=== PATIENT | male | born 1980 | race Caucasian/White ===

== ENCOUNTER → 2017-12-21 14:27 | Outpatient (CLI) | payer MEDICAID, SELFPAY ==
[2017-08-08 18:09] VITALS: BMI 38.0
[2017-08-08 19:13] VITALS: BP 149/95
[2017-12-21 15:18] LABS: Absolute Lymphocyte Count 2.15 X10^3/ul (0.83-4.51); Absolute Neutrophil Count 6.8 X10^3/uL (2.0-7.7); Basophil# 0.07 X10^3/uL; Basophil% 0.7 % (0-1); Eosinophils% 2.9 % (0-5); Hematocrit 45.1 % (40-54); Hemoglobin 15.4 g/dl (13.0-16.5); Lymphocyte # 2.15 X10^3/ul (4.0); Mean Corp Hgb Conc 34.1 g/gl (32-36); Mean Corpuscular Volume 84.9 fL (80-94); Mean Platelet Vol. 10.5 fl (6.2-12.0); Monocyte# 0.83 X10^3/uL; Monocyte% 8.1 % (0-10); Neutrophil # 6.81 X10^3/uL (2.7-7.7); Neutrophil % 66.4 % (47-70); POSITIVE COUNT NO; POSITIVE DIFFERENTIAL NO; POSITIVE MORPHOLOGY NO; Platelet Count 323 K/mm3 (150-450); RBC Distribution Width CV 13.8 % (11.6-14.6); RBC Distribution Width SD 42.7 fl (35.1-43.9); Red Blood Count 5.31 M/mm3 (4.6-6.2); White Blood Count 10.3 K/mm3 (4.4-11.0)
[2017-12-21 15:57] LABS: AST(SGOT) 25 U/L (15-37); Alanine Aminotransfer ALT/SGPT 39 U/L (16-61); Albumin, Serum 3.7 g/dL (3.2-5.0); Alkaline Phosphatase 110 U/L (45-117); Anion Gap 8 (5-15); BUN 11 mg/dL (7-18); BUN/Creat Ratio 8.3 RATIO (10-20); Calcium,Total 9.2 mg/dL (8.5-10.1); Chloride 107 mmol/L (98-107); Creatinine, Serum 1.32 mg/dL (0.70-1.30); EST Glomerular Filtration Rate 64 mL/min (>60); Est Glom Filt Rate - Afr Amer 78 mL/min (>60); Globulin 3.7 g/dL (2.2-4.2); Glucose 113 mg/dL (74-106); Potassium 3.8 mmol/L (3.5-5.1); Protein, Total 7.4 g/dL (6.4-8.2); Sodium Level 141 mmol/L (136-145)
== END ==
PROVIDERS: Family Provider Family Medicine Geriatric Medicine; PCP Family Medicine Geriatric Medicine; Visit Provider Family Medicine Geriatric Medicine
DX: R53.83 Other fatigue (principal)
CPT/HCPCS: 80053; 85025

== ENCOUNTER 2017-12-22 22:32 | Emergency (ER) | payer MEDICAID, SELFPAY ==
[2017-12-22 22:33] VITALS: BP 160/114; PULSE 91; RESP 14; TEMP 36.8; O2SAT 97; BMI 36.7
--- NOTE | 2017-12-22 23:32 | ED.VISSUMM ---
- ER Visit Summary Date of Service: 12/22/17 Chief Complaint: Bleeding from left ear History of Present Illness: The patient is a [address] Cota. He reports that he was cleaning out his left ear with a Q-tip when he began having some bleeding. He reports he has an aching pain instead of 10 at worst and 5 out of 10 currently. Physical Examination: Vitals: Stable. Afebrile. General: Well-nourished and well-developed. Head: Normocephalic atraumatic. HEENT: Abrasion to the outer portion of the left external auditory canal. There is no active bleeding. His TM is normal. Neck: Supple, no lymphadenopathy. No JVD. Nontender. Cardiovascular: Regular rate and rhythm. No murmurs. Respiratory: No respiratory distress. Clear to auscultation bilaterally. Abdominal: Soft, nontender, nondistended, normal bowel sounds. No guarding, rebound, or peritoneal signs. Back: Nontender. Extremities: Nontender, no edema. Skin: Normal color, no rash. Neurologic: Alert and oriented ?3. Cranial nerves II through XII are intact. Normal strength and sensation. Psych: Normal affect. Test Results: Patient was treated with Cortisporin otic to prevent otitis externa. He was given naproxen for pain. Emergency Department Course and Treatment: He will be discharged with Cortisporin otic and naproxen. Instructed to follow-up with Dr. Del Rio in 1 week if not improving. Disposition: To home in improved and stable condition. Impression: 1. Abrasion left external auditory canal. This note was generated with Not[employer] dictation software. It may contain incorrect words, spelling, and punctuation that were not noted in review of the chart prior to signing ED Disposition - Plan for ED Patient: Disposition: Home or Assisted Living Chief Complaint: Ear Problem Instructions: ED Otitis Externa Prescriptions: Naproxen [Naprosyn] 500 mg PO BID PRN #20 tablet Referrals: Alex Cota Chi, MD [Primary Care Provider] - 1 Week if not improving
[2017-12-23] MEDS: Neomycin Sulfate/Polymyxin/Hc Susp 10 ML Bottle 1 DRP OTIC (00:03)
[2017-12-23] MEDS: Naproxen 500 MG Tablet PO (00:03)
[2017-12-23 00:10] VITALS: RESP 16
== END 2017-12-23 00:10 | disposition home or self-care (01) ==
PROVIDERS: Emergency Provider Emergency Medicine; Family Provider Family Medicine Geriatric Medicine; PCP Family Medicine Geriatric Medicine
DX: S00.412A Abrasion of left ear, initial encounter (principal); X58.XXXA Exposure to other specified factors, initial encounter; Y93.E8 Activity, other personal hygiene; Y92.9 Unspecified place or not applicable; Y99.9 Unspecified external cause status
CPT/HCPCS: 99283

== ENCOUNTER 2018-01-14 13:37 | Emergency (ER) | payer MEDICAID, SELFPAY ==
[2018-01-14 13:39] VITALS: BP 155/114; PULSE 88; RESP 18; TEMP 37.3; O2SAT 96; BMI 36.6
[2018-01-14] MEDS: 0.9% Normal Saline 1,000 ML 1000 ML IV (14:18)
[2018-01-14] MEDS: Ondansetron 4 MG/2 ML Vial IV (14:18)
[2018-01-14] MEDS: Dicyclomine 10 MG Capsule 20 MG PO (14:18)
[2018-01-14 14:34] LABS: Absolute Neutrophil Count 4.1 X10^3/uL (2.0-7.7); Basophil# 0.15 X10^3/uL; Basophil% 1.9 % (0-1); Eosinophil# 0.12 X10^3/uL; Eosinophils% 1.5 % (0-5); Hematocrit 44.6 % (40-54); Hemoglobin 15.7 g/dl (13.0-16.5); Lymphocyte % 31.6 % (19-41); Mean Corp Hgb Conc 35.2 g/gl (32-36); Mean Corpuscular Hgb 29.3 pg (27.0-32.0); Mean Corpuscular Volume 83.2 fL (80-94); Monocyte# 1.05 X10^3/uL; Monocyte% 13.3 % (0-10); Neutrophil # 4.05 X10^3/uL (2.7-7.7); Neutrophil % 51.3 % (47-70); POSITIVE COUNT NO; POSITIVE DIFFERENTIAL NO; POSITIVE MORPHOLOGY NO; Platelet Count 171 K/mm3 (150-450); RBC Distribution Width CV 13.7 % (11.6-14.6); RBC Distribution Width SD 41.8 fl (35.1-43.9); Red Blood Count 5.36 M/mm3 (4.6-6.2); White Blood Count 7.9 K/mm3 (4.4-11.0)
[2018-01-14 14:41] LABS: ALB/GLOB Ratio 0.9 RATIO (0.9-2.4); AST(SGOT) 37 U/L (15-37); Alanine Aminotransfer ALT/SGPT 60 U/L (16-61); Albumin, Serum 3.7 g/dL (3.2-5.0); Alkaline Phosphatase 109 U/L (45-117); Anion Gap 9 (5-15); BUN 7 mg/dL (7-18); BUN/Creat Ratio 4.8 RATIO (10-20); Calcium,Total 10.9 mg/dL (8.5-10.1); Chloride 107 mmol/L (98-107); Creatinine, Serum 1.45 mg/dL (0.70-1.30); EST Glomerular Filtration Rate 57 mL/min (>60); Est Glom Filt Rate - Afr Amer 70 mL/min (>60); Estimated Creatinine Clearance 79.52 ml/min; Globulin 3.9 g/dL (2.2-4.2); Glucose 109 mg/dL (74-106); Lipase 150 U/L (73-393); Potassium 3.4 mmol/L (3.5-5.1); Protein, Total 7.6 g/dL (6.4-8.2); Sodium Level 142 mmol/L (136-145)
--- NOTE | 2018-01-14 15:50 | ED.VISSUMM ---
- ER Visit Summary Date of Service: 01/14/18 Chief Complaint: [Vomiting, diarrhea, abdominal pain] History of Present Illness: The patient is a 37 M [presents to the emergency department with 3-4 day history of vomiting followed by diarrhea and abdominal pain. Patient currently rates his pain a 10 out of 10. Patient has not thrown up since yesterday. Patient has had one watery stool today. The diarrhea was more severe the preceding 2 days. Patient denies any blood in his stool. Patient denies fever or sick contacts. Patient denies recent travel or antibiotic usage.] Physical Examination: [HEENT-PERRLA, EOMI. Cranial nerves II through XII grossly intact. TMs clear. Mucous membranes tightly dry. No adenopathy. Cardiovascular-regular rate and rhythm without murmur or ectopy Lungs-clear to auscultation, chest wall stable without crepitus or subcu emphysema Abdomen-normoactive bowel sounds, soft. Patient has mild diffuse tenderness. There is no rebound, rigidity, or peritoneal signs. Extremities-intact ?4, normal range of motion, normal pulses, atraumatic] Test Results: [CBC with differential showed a normal white blood cell count, chemistries were unremarkable. LFTs and lipase were normal. [place] level was 0.3.] Emergency Department Course and Treatment: [She was medicated with Zofran and given Bentyl IM. Patient was given a liter normal saline fluid bolus. On repeat exam he is feeling significantly improved and has minimal abdominal discomfort on exam.] Treatment Plan: [Patient will be discharged home with a prescription for Bentyl and Zofran. Patient advised to use Imodium for persistent diarrhea.] Disposition: [Discharged to home in stable condition. Patient advised to return if persistent vomiting, dehydration, diarrhea, worsening abdominal pain, or condition should worsen in any way.] Impression: [Viral gastroenteritis] This note was generated with [employer]able dictation software. It may contain incorrect words, spelling, and punctuation that were not noted in review of the chart prior to signing ED Disposition - Plan for ED Patient: Chief Complaint: Abd Pain Referrals: Alex Cota Chi, MD [Primary Care Provider] -
--- NOTE | 2018-01-14 15:52 | ED.DEP ---
ED Disposition - Plan for ED Patient: Chief Complaint: Abd Pain Instructions: ED Gastroenteritis Viral Prescriptions: Ondansetron [Zofran Odt] 4 mg PO Q8H PRN PRN #10 tab PRN Reason: Nausea Dicyclomine HCl [Bentyl] 20 mg PO TIDAC #20 cap Referrals: Alex Cota Chi, MD [Primary Care Provider] - 3-5 Days
[2018-01-14 15:59] VITALS: BP 153/106; PULSE 85; RESP 16; O2SAT 96
== END 2018-01-14 16:00 | disposition home or self-care (01) ==
PROVIDERS: Emergency Provider Emergency Medicine; Family Provider Family Medicine Geriatric Medicine; PCP Family Medicine Geriatric Medicine
DX: A08.4 Viral intestinal infection, unspecified (principal); I10 Essential (primary) hypertension; F31.9 Bipolar disorder, unspecified; F25.9 Schizoaffective disorder, unspecified
CPT/HCPCS: 80053; 80178; 83690; 85025; 96361; 96374; 99283; J7030; J2405

== ENCOUNTER → 2018-01-23 16:22 | Outpatient (CLI) | payer MEDICAID, SELFPAY ==
--- NOTE | 2018-01-23 16:25 | CT_ITS ---
STUDY: CT ABDOMEN AND PELVIS WITH CONTRAST REASON FOR EXAM: Male, 37 years old. Umbilical pain for 1.5 weeks. RADIATION DOSAGE (If Supplied By Facility): CTDIvol = ( 18.57 ) mGy, DLP = ( 1334.66 ) mGycm TECHNIQUE: Transaxial images were obtained from the dome of the diaphragm to the symphysis pubis with oral contrast. 100 ml of Isovue 300 contrast was administered. Sagittal and coronal images were reconstructed. Individualized dose optimization techniques were used for this CT. COMPARISON: CT of the abdomen and pelvis, November 09, 2017. FINDINGS: There is a stable small right pleural effusion. There is no pulmonary mass or infiltrate. The visualized portions of the heart are within normal limits. Again seen is small fluid density mass along the right atrium which appears unchanged from the prior study. Normal liver. Normal gallbladder and extrahepatic biliary system. There is mild splenomegaly. Normal pancreas. Normal bilateral adrenal glands. Normal right kidney. Normal left kidney. Normal bilateral ureters. There is a type I hiatal hernia. The distal stomach is unremarkable. Normal small intestine. There is scattered colonic diverticuli. There is no acute inflammatory change. The appendix is visualized and appears normal. Normal abdominal aorta. Normal inferior vena cava. Normal retroperitoneum. Normal urinary bladder. Normal prostate and seminal vesicles. There is no pelvic lymphadenopathy. No free air or free fluid is seen within the peritoneal cavity. There are bilateral inguinal hernias of omental fat. The abdominal wall is otherwise unremarkable. There are diffuse degenerative changes of the visualized lumbar spine. CT/Abdomen/Pelvis WITH Contrast IMPRESSION: 1. Small fluid density mass along the right atrium. This is unchanged from prior study. Question pericardial cyst. 2. Increasing splenomegaly. 3. Hiatal hernia. 4. Colonic diverticulosis without acute inflammatory change. 5. Stable degenerative changes of the lumbar spine. 6. Stable minimal right pleural effusion. Electronically Signed: Pio Birmingham DO at 17:37 EDT Tel [phone], Service support ,
== END ==
PROVIDERS: Family Provider Family Medicine Geriatric Medicine; PCP Family Medicine Geriatric Medicine; Visit Provider Family Medicine Geriatric Medicine
DX: R10.9 Unspecified abdominal pain (principal)
CPT/HCPCS: 74177; Q9967

== ENCOUNTER → 2018-01-24 15:38 | Outpatient (CLI) | payer MEDICAID, SELFPAY | PROVIDERS: Family Provider Family Medicine Geriatric Medicine; PCP Family Medicine Geriatric Medicine; Visit Provider Family Medicine Geriatric Medicine | DX: R19.7 Diarrhea, unspecified (principal) | CPT/HCPCS: 82274; 83630; 87177; 87209; 87493; 87506 ==

== ENCOUNTER 2018-02-16 06:50 | Day surgery (SDC) | payer MEDICAID, SELFPAY ==
[2018-02-16 07:15] VITALS: BP 138/93; PULSE 63; RESP 14; TEMP 36.3; O2SAT 95; BMI 35.7
--- NOTE | 2018-02-16 08:31 | PCM.OPRPT ---
Problem List (1) Sigmoid thickening Status: Acute Report of Operation Date of Procedure: 02/16/18 Pre-Operative Diagnosis: Thickening of sigmoid on CAT scan Post-Operative Diagnosis: Normal colonoscopy Surgery/Procedure Performed:: Colonoscopy Description of Procedure: The major risks and benefits associated with the procedure were explained to the patient in detail. The patient verbalized understanding and agreement with the same. The patient was brought to the endoscopy suite. After adequate sedation was achieved, the patient was placed in the left lateral decubitus position and a digital rectal exam was performed. This examination was within normal limits. A well-lubricated colonoscope was then inserted into the rectum and advanced under direct visualization to the level of the cecum. The bowel prep was fair. The cecum was identified by both visual and anatomic landmarks. A photograph was taken of the end of the cecum. The scope was then fully withdrawn while examining the color, texture, anatomy and integrity of the mucosa from the cecum to the anal canal. The findings were consistent with normal colonic mucosa. The sigmoid colon appeared normal with no thickening or signs of malignancy. Over 6 minutes were taken to examine the colonic mucosa. Upon reaching the rectum the scope was retroflexed to examine the distal rectal vault. The scope was then straightened and was completely retrieved upon exiting the anal canal and the procedure was terminated. The patient was then transferred to the recovery room in stable condition. Recommendations for follow up: Resume screening colonoscopies at age 48
[2018-02-16 08:35] VITALS: BP 125/96; BP 138/93; PULSE 63; RESP 18; TEMP 36.2; O2SAT 97
[2018-02-16 08:40] VITALS: BP 134/84; BP 138/93; PULSE 63; RESP 16; O2SAT 96
[2018-02-16 08:45] VITALS: BP 134/87; BP 138/93; PULSE 55; RESP 18; O2SAT 96
[2018-02-16 08:51] VITALS: BP 133/92; BP 138/93; PULSE 74; RESP 18; TEMP 36; O2SAT 100
[2018-02-16 09:01] VITALS: BP 138/93
== END 2018-02-16 09:13 | disposition home or self-care (01) ==
PROVIDERS: Family Provider Family Medicine Geriatric Medicine; PCP Family Medicine Geriatric Medicine; Visit Provider Surgery
PROC: 0DJD8ZZ Inspection of Lower Intestinal Tract, Via Natural or Artificial Opening Endoscopic (ICD-10-PCS; CPT 45378; principal; 2018-02-16 07:55)
DX: K63.9 Disease of intestine, unspecified (principal); I10 Essential (primary) hypertension; F41.9 Anxiety disorder, unspecified; F31.9 Bipolar disorder, unspecified
CPT/HCPCS: 45378; J7120

== ENCOUNTER 2018-02-23 14:25 | Emergency (ER) | payer MEDICAID, SELFPAY ==
[2018-02-23 14:26] VITALS: BP 139/81; PULSE 77; RESP 16; TEMP 36.6; O2SAT 96; BMI 34.7
--- NOTE | 2018-02-23 15:37 | ED.VISSUMM ---
- ER Visit Summary Date of Service: 02/23/18 Chief Complaint: Sore throat History of Present Illness: The patient is a 37 M who presents with sore throat that has been getting worse over the past 3 days. Patient states his pain is worse with swallowing. Patient admits to some nausea but denies any vomiting. Patient admits to a cough but denies any sputum. Patient denies any fevers. Patient denies any chest pain or shortness of breath. Patient denies any rhinorrhea or upper respiratory congestion. Physical Examination: Vital signs are stable. Patient is afebrile. Patient is in no acute distress. Oral mucosa is pink and moist. Oropharynx is mildly erythematous. There are no exudates noted. Neck is supple. Trachea is midline. There is tender anterior cervical lymphadenopathy noted. Heart was regular rate and rhythm. Lungs are clear and equal bilaterally. Abdomen is soft and nontender. Bowel sounds are normal. Cranial nerves II through XII are intact. There are no focal motor or sensory deficits noted. The remaining physical exam is within normal limits. Test Results: Rapid strep was obtained and was negative Treatment Plan: Patient was advised that this most likely a viral upper respiratory infection. Patient was instructed to drink plenty of fluids. Patient was instructed to take Tylenol or ibuprofen as needed for any pain or fevers. Patient was instructed to follow-up with his primary care physician in 7-10 days. Patient understood and was agreeable with the plan. All questions were answered. Disposition: Discharge home Impression: Viral pharyngitis This note was generated with [employer] dictation software. It may contain incorrect words, spelling, and punctuation that were not noted in review of the chart prior to signing ED Disposition - Plan for ED Patient: Disposition: Home or Assisted Living Chief Complaint: Sore Throat Diagnosis: Viral pharyngitis Instructions: ED Pharyngitis Viral Referrals: Alex Cota Chi, MD [Primary Care Provider] -
[2018-02-23 16:40] VITALS: BP 134/99; PULSE 72; RESP 16; O2SAT 93
== END 2018-02-23 16:45 | disposition home or self-care (01) ==
PROVIDERS: Emergency Provider Emergency Medicine; Family Provider Family Medicine Geriatric Medicine; PCP Family Medicine Geriatric Medicine
DX: J02.9 Acute pharyngitis, unspecified (principal); R05 Cough; R11.0 Nausea; R59.0 Localized enlarged lymph nodes; F31.9 Bipolar disorder, unspecified; Z79.899 Other long term (current) drug therapy
CPT/HCPCS: 87880; 99282

== ENCOUNTER → 2018-07-09 08:30 | Outpatient (CLI) | payer MEDICAID, SELFPAY ==
--- NOTE | 2018-07-09 | ASPOS_PTH ---
PATIENT: WESTON MARMOLEJO LOC: [facility] U#:[id number] AGE/SX: 45/M ROOM: RE07/09/[address]: Dr. Nico Rosas MD : 1980 BED: DIS: SPEC #: [id number] RECD: 07/09/18 13:54 STATUS: HERMANN ADHIKARI #: [id number] WU: 07/09/18 00:[address]: Nico Rosas DEPT: CYTOLOGY RECD BY: Jimmy East ENTERED: 07/09/18 13:56 SP TYPE: ASP HERE OTHR DR: Dr. Alex Cota MD Tissues: Parotid gland, NOS Procedures: Surgery Specimen Level IV Cytology Other Fine Needle Asp on Site HEADER OPERATION: FNA, left parotid mass PRE-OP DIAGNOSIS: Left parotid mass TISSUE SUBMITTED: FNA, left parotid smears and fluid DIAGNOSIS CYTOLOGY Fine needle aspiration, left parotid mass (smears and cell block): Polymorphous lymphocytes consistent with reactive lymph node. AM:fran 07/10/18 COMMENT The specimen is evaluated at the time of FNA by Dr. Abarca. Immediate Evaluation = Polymorphous lymphocytes present. Flow cytometric analysis supports the above diagnosis. The complete flow report is viewable in patient?s EMR. Immunohistochemistry ([id number]) supports the above diagnosis. CYTOLOGY STUDY Slides are reviewed. CYTOLOGY GROSS Received is 1 ml of fluid and 9 smears labeled with the patient's name and and designated per the requisition as FNA, left parotid mass. Submitted for cytology preparation including cell block. /Christina 07/09/18 TC:5 CPT: 77327, 57118, 89770, 44364
--- NOTE | 2018-07-09 | IMM_PTH ---
PATIENT: WESTON MARMOLEJO LOC: [facility] U#:[id number] AGE/SX: 45/M ROOM: RE07/09/[address]: Dr. Nico Rosas MD : 1980 BED: DIS: SPEC #: [id number] RECD: 07/10/18 12:28 STATUS: HERMANN REThu #: [id number] WU: 07/09/18 00:[address]: Nico Rosas DEPT: IMMUNOHISTOCHEMISTRY RECD BY: Lucero Boggs ENTERED: 07/10/18 12:29 SP TYPE: IMMUNO OTHR DR: Dr. Alex Cota MD Tissues: Parotid gland, NOS Procedures: CD138 (add) CD20 (add) CD45 (add) CD5 (add) CD79A (add) CD3 (initial) PHYSICIAN & INSTITUTION [place] [id number] SPECIMEN INFORMATION: Tissue Source: Left parotid mass, FNA Clinical Info: Left parotid mass Specimen Number: [id number] CPT code: 74872, 99874 x5 METHODOLOGY: Deparaffinized sections of prefer/formalin-fixed tissue or PAP/DQ stained slides are incubated with monoclonal/polyclonal antibodies/oligonucleotide probes. Localization is made via biotin free immunoperoxidase method. Appropriate controls are performed and reacted as expected. Results on target cell population are indicated in the following table: RESULTS: ANTIBODY / CLONE RESULT CD3 (PS1) positive CD5 (SP10) positive CD20 (L26) positive CD45 (RP2/18) positive CD79a (11E3) positive CD138 (B-A38) negative These tests were developed and their performance characteristics determined by [facility]. They may not have been cleared or approved by the U.S. Food and Drug Administration. The FDA has determined that such clearance or approval is not necessary. INTERPRETATION: Left parotid mass, fine needle aspiration: Polytypic lymphocytes consistent with benign lymphoid tissue. AM:fran 07/11/18
== END ==
PROVIDERS: Family Provider Family Medicine Geriatric Medicine; PCP Family Medicine Geriatric Medicine; Visit Provider Otolaryngology
DX: D11.0 Benign neoplasm of parotid gland (principal)
CPT/HCPCS: 10021; 88161; 88305; 88341; 88342

== ENCOUNTER → 2018-07-19 11:04 | Outpatient (CLI) | payer MEDICAID, SELFPAY | PROVIDERS: Family Provider Family Medicine Geriatric Medicine; PCP Family Medicine Geriatric Medicine; Visit Provider Otolaryngology | DX: K11.8 Other diseases of salivary glands (principal) | CPT/HCPCS: 70491; Q9967 ==

== ENCOUNTER → 2018-07-25 09:59 | Outpatient (CLI) | payer MEDICAID, SELFPAY ==
[2018-07-25 11:15] LABS: Creatinine, Serum 1.36 mg/dL (0.70-1.30); EST Glomerular Filtration Rate 62 mL/min (>60); Est Glom Filt Rate - Afr Amer 75 mL/min (>60); Thyroid Stim Hormone (TSH) 3.44 uIU/mL (0.358-3.74)
== END ==
PROVIDERS: Family Provider Family Medicine Geriatric Medicine; PCP Family Medicine Geriatric Medicine; Visit Provider Psychiatry & Neurology Psychiatry
DX: Z79.899 Other long term (current) drug therapy (principal)
CPT/HCPCS: 36415; 80178; 82565; 84443

== ENCOUNTER → 2018-08-31 08:03 | Outpatient (CLI) | payer MEDICAID, SELFPAY ==
[2018-08-31 09:40] LABS: Hematocrit 43.3 % (40-54); Hemoglobin 14.7 g/dl (13.0-16.5); Mean Corp Hgb Conc 33.9 g/gl (32-36); Mean Corpuscular Hgb 29.8 pg (27.0-32.0); Mean Corpuscular Volume 87.8 fL (80-94); Mean Platelet Vol. 10.3 fl (6.2-12.0); Platelet Count 255 K/mm3 (150-450); RBC Distribution Width CV 13.3 % (11.6-14.6); RBC Distribution Width SD 42.7 fl (35.1-43.9); Red Blood Count 4.93 M/mm3 (4.6-6.2); White Blood Count 9.3 K/mm3 (4.4-11.0)
[2018-08-31 09:50] LABS: Scan Indicated on CBC? Y/N NO
[2018-08-31 09:57] LABS: Anion Gap 3 (5-15); BUN 13 mg/dL (7-18); BUN/Creat Ratio 9.9 RATIO (10-20); Chloride 111 mmol/L (98-107); Creatinine, Serum 1.31 mg/dL (0.70-1.30); EST Glomerular Filtration Rate 64 mL/min (>60); Est Glom Filt Rate - Afr Amer 78 mL/min (>60); Glucose 87 mg/dL (74-106); Potassium 4.5 mmol/L (3.5-5.1); Sodium Level 144 mmol/L (136-145)
== END ==
PROVIDERS: Family Provider Family Medicine Geriatric Medicine; PCP Family Medicine Geriatric Medicine; Referring Provider Otolaryngology; Visit Provider Otolaryngology
DX: Z01.818 Encounter for other preprocedural examination (principal)
CPT/HCPCS: 36415; 80048; 85027

== ENCOUNTER 2018-09-01 17:37 | Emergency (ER) | payer MEDICAID, SELFPAY ==
[2018-09-01 17:38] VITALS: BP 159/124; PULSE 77; RESP 18; TEMP 36.9; O2SAT 97; BMI 35.6
[2018-09-01 17:45] VITALS: BP 184/122
--- NOTE | 2018-09-01 18:02 | EKG12_ITS ---
Test Reason : HEADACHE Blood Pressure : / mmHG Vent. Rate : 061 BPM Atrial Rate : 061 BPM P-R Int : 176 ms QRS Dur : 106 ms QT Int : 352 ms P-R-T Axes : 034 -20 091 degrees QTc Int : 354 ms Normal sinus rhythm with sinus arrhythmia Nonspecific T wave abnormality Abnormal ECG Confirmed by NILSA MAN, JEISON ([id number]), telegraph editor RICHARD PALMA ([id number]) on 09/04/2018 11:19:41 AM Referred By: Nico Rosas Confirmed By:JEISON ASH MD
--- NOTE | 2018-09-01 18:03 | CT_ITS ---
STUDY: CT BRAIN WITHOUT CONTRAST REASON FOR EXAM: Male, 38 years old. Headache. Vomiting. RADIATION DOSAGE (If Supplied By Facility): CTDIvol = ( 44.99 ) mGy, DLP = ( 829.85 ) mGycm TECHNIQUE: Transaxial CT imaging of the brain was performed without administration of intravenous contrast material. Individualized dose optimization techniques were used for this CT. COMPARISON: 12/24/2015 FINDINGS: There is no acute bleed or infarct. There are normal white matter tracts. The ventricles are normal in configuration. There is no hydrocephalus. The visualized paranasal sinuses are clear. The mastoid air cells are well aerated. There is no skull fracture. CT/Brain/Head without Contrast IMPRESSION: No acute intracranial abnormality. Electronically Signed: Keegan Aguilera, at 20:02 EDT Tel , Service support ,
[2018-09-01 18:12] VITALS: BP 176/113; PULSE 67; RESP 16; O2SAT 97
[2018-09-01] MEDS: proCHLORPERazine 10 MG/2 ML Vial IV (18:23)
[2018-09-01] MEDS: 0.9% Normal Saline 1,000 ML 999 ML IV (18:23)
[2018-09-01] MEDS: DiphenhydrAMINE 50 MG/ML Syringe 25 MG IV (18:23)
[2018-09-01 18:38] LABS: Absolute Lymphocyte Count 2.43 X10^3/ul (0.83-4.51); Absolute Neutrophil Count 5.5 X10^3/uL (2.0-7.7); Basophil# 0.06 X10^3/uL; Basophil% 0.6 % (0-1); Eosinophil# 0.49 X10^3/uL; Eosinophils% 5.1 % (0-5); Hematocrit 43.1 % (40-54); Hemoglobin 14.9 g/dl (13.0-16.5); Lymphocyte # 2.43 X10^3/ul (4.0); Lymphocyte % 25.5 % (19-41); Mean Corp Hgb Conc 34.6 g/gl (32-36); Mean Corpuscular Volume 86.9 fL (80-94); Mean Platelet Vol. 9.7 fl (6.2-12.0); Monocyte# 1.02 X10^3/uL; Monocyte% 10.7 % (0-10); Neutrophil # 5.49 X10^3/uL (2.7-7.7); Neutrophil % 57.8 % (47-70); POSITIVE COUNT NO; POSITIVE DIFFERENTIAL NO; POSITIVE MORPHOLOGY NO; Platelet Count 250 K/mm3 (150-450); RBC Distribution Width CV 13.4 % (11.6-14.6); RBC Distribution Width SD 42.2 fl (35.1-43.9); Red Blood Count 4.96 M/mm3 (4.6-6.2); White Blood Count 9.5 K/mm3 (4.4-11.0)
[2018-09-01 18:45] LABS: Anion Gap 7 (5-15); BUN 13 mg/dL (7-18); BUN/Creat Ratio 10.2 RATIO (10-20); Calcium,Total 9.8 mg/dL (8.5-10.1); Chloride 110 mmol/L (98-107); Creatinine, Serum 1.28 mg/dL (0.70-1.30); EST Glomerular Filtration Rate 66 mL/min (>60); Est Glom Filt Rate - Afr Amer 80 mL/min (>60); Glucose 94 mg/dL (74-106); Potassium 3.7 mmol/L (3.5-5.1); Sodium Level 144 mmol/L (136-145)
[2018-09-01 20:16] VITALS: BP 168/112; PULSE 62; RESP 16; O2SAT 92
--- NOTE | 2018-09-01 20:35 | ED.VISSUMM ---
- ER Visit Summary Date of Service: 09/01/18 Chief Complaint: Migraine History of Present Illness: The patient is a 38 M with a history of prior migraines who presents with a migraine. He states his headache began yesterday and gradually worsened throughout the day. He describes this as a sharp frontal and retro-orbital headache. It is severe. He does have a history of prior similar headaches. He notes that this is similar in character and location to previous headaches. He does report some nausea and vomiting. He denies any chest pain shortness of breath lightheadedness dizziness. No recent illness. No head trauma. No fever. Physical Examination: Initial blood pressure 184/122 vitals otherwise normal Moist mucous membranes Heart regular rate and rhythm Lungs are clear Abdomen soft Alert and oriented with no focal or lateralizing neurological deficits normal strength and sensation no ataxia Test Results: EKG shows normal sinus rhythm at a rate of 61 with nonspecific T wave changes, T wave flattening laterally. CBC BMP unremarkable. CT the head shows no acute process. Emergency Department Course and Treatment: Patient was symptomatically treated here with Compazine and Benadryl. On reevaluation he is resting comfortably. He was sleeping. He reports symptomatic improvement. His blood pressure is slightly improved as well at 168/112. I do not believe this is hypertensive emergency. I spoke to his primary care physician Dr. Cota and I will start him on hydrochlorothiazide. He has an appointment on Monday when this can be followed up. He understands to return for new or worsening symptoms and the patient was discharged. Treatment Plan: [] Disposition: Discharge Impression: Migraine Elevated blood pressure This note was generated with [employer] dictation software. It may contain incorrect words, spelling, and punctuation that were not noted in review of the chart prior to signing ED Disposition - Plan for ED Patient: Chief Complaint: Headache Referrals: Alex Cota Chi, MD [Primary Care Provider] -
--- NOTE | 2018-09-01 20:38 | ED.DEP ---
ED Disposition - Plan for ED Patient: Chief Complaint: Headache Instructions: ED Headache Migraine, ED Hypertension Poss Prescriptions: Hydrochlorothiazide [Hctz] 25 mg PO DAILY #30 tab Referrals: Alex Cota Chi, MD [Primary Care Provider] -
[2018-09-01 20:57] VITALS: BP 165/113; PULSE 62; RESP 15; O2SAT 92
== END 2018-09-01 20:58 | disposition home or self-care (01) ==
PROVIDERS: Emergency Provider Emergency Medicine; Family Provider Family Medicine Geriatric Medicine; PCP Family Medicine Geriatric Medicine
DX: G43.909 Migraine, unspecified, not intractable, without status migrainosus (principal); R03.0 Elevated blood-pressure reading, without diagnosis of hypertension; F31.9 Bipolar disorder, unspecified; F25.9 Schizoaffective disorder, unspecified
CPT/HCPCS: 70450; 80048; 85025; 93005; 99284; J7030

== ENCOUNTER 2019-01-14 07:46 | Day surgery (SDC) | payer MEDICAID, SELFPAY ==
[2019-01-08 17:56] LABS: Hematocrit 43.3 % (40-54); Hemoglobin 14.8 g/dl (13.0-16.5); Mean Corp Hgb Conc 34.2 g/gl (32-36); Mean Corpuscular Hgb 30.3 pg (27.0-32.0); Mean Corpuscular Volume 88.5 fL (80-94); Mean Platelet Vol. 10.1 fl (6.2-12.0); Platelet Count 248 K/mm3 (150-450); RBC Distribution Width CV 13.7 % (11.6-14.6); Red Blood Count 4.89 M/mm3 (4.6-6.2); White Blood Count 8.2 K/mm3 (4.4-11.0)
[2019-01-08 17:58] LABS: Scan Indicated on CBC? Y/N NO
[2019-01-08 18:08] LABS: Anion Gap 7 (5-15); BUN 19 mg/dL (7-18); BUN/Creat Ratio 13.2 RATIO (10-20); Calcium,Total 9.3 mg/dL (8.5-10.1); Chloride 111 mmol/L (98-107); Creatinine, Serum 1.44 mg/dL (0.70-1.30); EST Glomerular Filtration Rate 58 mL/min (>60); Est Glom Filt Rate - Afr Amer 70 mL/min (>60); Glucose 108 mg/dL (74-106); Potassium 3.7 mmol/L (3.5-5.1); Sodium Level 145 mmol/L (136-145)
--- NOTE | 2019-01-14 | IMM_PTH ---
PATIENT: WESTON MARMOLEJO LOC: [facility] [place] U#:[id number] AGE/SX: 38/M ROOM: RE01/14/[address]: Dr. Nico Rosas MD : 1980 BED: DIS: 01/14/2019 SPEC #: [id number] RECD: 01/15/19 13:10 STATUS: HERMANN REThu #: [id number] WU: 01/14/19 00:[address]: Nico Rosas DEPT: IMMUNOHISTOCHEMISTRY RECD BY: Lucero Boggs ENTERED: 01/15/19 13:12 SP TYPE: IMMUNO OTHR DR: Dr. 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 Localization is made via biotin free immunoperoxidase method. Appropriate controls are performed and reacted as expected. Results on target cell population are indicated in the following table: RESULTS: ANTIBODY / CLONE RESULT Block 1 AE1-3 (AE1/AE3/PCK26) negative CD3 (PS1) positive CD5 (SP10) positive CD20 (L26) positive CD43 (L60) positive CD45 (RP2/18) positive CD79a (11E3) positive CD138 (B-A38) negative BCL-2 (bcl-2/100/D5) negative Ki-67 (30-9) positive, low Block 2 AE1-3 (AE1/AE3/PCK26) negative CD3 (PS1) positive CD5 (SP10) positive CD20 (L26) positive CD43 (L60) positive CD45 (RP2/18) positive CD79a (11E3) positive CD138 (B-A38) negative BCL-2 (bcl-2/100/D5) negative Ki-67 (30-9) positive, low Block 3 AE1-3 (AE1/AE3/PCK26) negative CD3 (PS1) positive CD5 (SP10) positive CD20 (L26) positive CD43 (L60) positive CD45 (RP2/18) positive CD79a (11E3) positive CD138 (B-A38) negative BCL-2 (bcl-2/100/D5) negative Ki-67 (30-9) positive, low These tests were developed and their performance characteristics determined by [facility]. They may not have been cleared or approved by the U.S. Food and Drug Administration. The FDA has determined that such clearance or approval is not necessary. INTERPRETATION: Left superficial lobe of parotid, parotidectomy: Two out of two lymph nodes with reactive change. No evidence of lymphoproliferative disorder. AM:fran 01/16/19
[2019-01-14 08:05] VITALS: BP 131/88; PULSE 64; RESP 16; TEMP 36.6; O2SAT 97; BMI 35.7
--- NOTE | 2019-01-14 08:45 | MASS_PTH ---
PATIENT: WESTON MARMOLEJO LOC: [facility] [place] U#:[id number] AGE/SX: 38/M ROOM: RE01/14/[address]: Dr. Nico Rosas MD : 1980 BED: DIS: 01/14/2019 SPEC #: [id number] RECD: 01/14/19 11:46 STATUS: HERMANN ZEYNEP #: [id number] WU: 01/14/19 08:[address]: Nico Rosas DEPT: SURGICAL PATHOLOGY RECD BY: Jimmy East ENTERED: 01/14/19 13:58 SP TYPE: Mass OTHR DR: Dr. 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 Salivary gland tissue with no significant pathologic change. No evidence of lymphoproliferative disorder. See comment. AM:fran 01/16/19 COMMENT The specimen is evaluated at the time of touch imprints by Dr. Barahona. Immediate Evaluation = Lymphocytes are noted. Immunohistochemistry ([id number]) supports the above diagnosis. Flow cytometric analysis of lymph node tissue reveals no significant immunophenotypic abnormality. There is no monoclonal B-cell population detected. There is no loss or aberrant expression of vasquez T cells. The CD4:CD8 ratio is 7.3. The complete flow analysis report is viewable in patient's EMR. Case has been reviewed in consultation with Dr. Barahona who concurs with the above diagnosis. IDC:[id number] MICROSCOPIC DESCRIPTION Slides are reviewed. GROSS DESCRIPTION Received in saline is one container labeled with the patient's name and designated left superficial lobe of parotid, suture in two areas of concern. The specimen consists of a glandular piece of shaw soft tissue with two areas marked by suture. These two areas marked by suture appear to consist of two ovoid pieces of shaw-pink nodules, possible lymph nodes measuring 1 x 0.6 x 0.5 cm and 1 x 0.5 x 0.3 cm. Both nodules are bisected. Four touch imprints are prepared, one touch imprint Diff-Quik and H & E from #1 from larger lymph node and one Diff-Quik and one H & E from #2 from smaller lymph node. The rest of the specimen weighs 11 gm and measures 4 x 3 x 2 cm. Sections of the glandular tissue do not reveal any obvious mass lesion. A section from each lymph node tissue is submitted for flow cytometry studies. [employer] sections are submitted in nine cassettes as follows: 1 - larger lymph node, 2 - smaller lymph node, 3-9 - glandular tissue. / JEFERSON:fran 01/14/19 TC:5 CPT: 19939, 39173
--- NOTE | 2019-01-14 09:06 | DCINST_ITS ---
You will use the following diet at home:: Regular Discharge Activity: - - No strenuous activity Additional Activity Instructions:: Empty and record drain output every 12 hours. Bring this recording with you to the post operative visit on Monday. Allergies/Adverse Reactions: Allergies olanzapine [From Zyprexa] Adverse Reaction (Verified 01/14/19 08:11) Vomiting Medications to take at Discharge Benztropine [Cogentin] 0.5 mg PO DAILY 10/03/13 Fluoxetine [Prozac] 30 mg PO DAILY 10/03/13 [place] Carbonate [Eskalith] 900 mg PO QHS 10/03/13 Albuterol IH (ProAir) [Proair Hfa] 2 puff INHALATION Q6H PRN PRN 11/16/13 sumatriptan 25 mg tablet 25 mg PO ONCE PRN 01/24/18 Aripiprazole [Abilify] 5 mg PO DAILY 02/12/18 Naproxen [Naprosyn] 500 mg PO BID PRN PRN 02/12/18 Hydrochlorothiazide [Hctz] 25 mg PO DAILY #30 tab 09/01/18 Primary Care Physician: Patsy Dixon MD [Primary Care Provider] - Test Results: Test results from this visit will be discussed in further detail at your follow- up appointment, if applicable.
[2019-01-14] MEDS: Bacitracin 500 UNITS/GM PACKET (11:34)
[2019-01-14 12:08] VITALS: BP 131/88; BP 152/92; PULSE 81; RESP 16; TEMP 37.1; O2SAT 95
[2019-01-14 12:15] VITALS: BP 131/88; BP 147/98; PULSE 85; RESP 16; O2SAT 95
[2019-01-14 12:30] VITALS: BP 131/88; BP 153/99; PULSE 85; RESP 16; O2SAT 95
[2019-01-14 12:44] VITALS: BP 131/88; BP 151/104; PULSE 79; RESP 16; TEMP 36.6; O2SAT 97
[2019-01-14] MEDS: HYDROcodone Bitartrate/Apap 5/325 Tablet PO (13:16)
--- NOTE | 2019-01-14 14:00 | PCM.OPRPT ---
Report of Operation Date of Procedure: 01/14/19 Pre-Operative Diagnosis: Left parotid mass Post-Operative Diagnosis: same Surgery/Procedure Performed:: left superficial parotidectomy with facial nerve dissection and preservation Description of Surgical Findings:: intact facial nerve scouring train operator chief: Ghazala - ARIANE maldonado Assistant: Rafael Maldonado Type of Anesthesia:: General Anesthesiologist: Braydon Baez Specimen's removed: left superfical lobe of the parotid Estimated Blood Loss (mL): minimal Description of Procedure: The patient was taken to the OR on 01/14/19. He was placed in the supine position and given sufficient general endotracheal anesthesia. The head of bed was elevated 30 degrees and the bed was turned 90 degrees clockwise. The NIM facial nerve monitor was used and the electrodes were placed accordingly. The left face was prepped and draped steriley. 1% lidocaine with epinephrine was injected into the skin overlying the intended incision. A modified Wilber incision was made a 15 blade. Bipolar cautery was used for hemostasis. A plane was established sharply on the parotid gland. The ear lobe was retracted posteriorly. The sternocleidomastoid muscle was skeletonized. Next, the mastoid tip and tragal pointer were each dissected and a trough was created between the two anatomic landmarks. Next, we used blunt dissection to locate the main trunk of the facial nerve. The nerve was dissected laterally and gland was removed from the nerve laterally. The pes was identified. Next, the inferior division was dissected. Each branch was dissected and the superficial lobe was removed using bipolar and scissors. The gland was then reflected superiorly. Next, the upper division branches were each dissected and the gland was removed laterally from the nerve. Absolute hemostasis was achieved with bipolar cautery. The gland was then sent for permanent section. The nerve was stimulated at that point and the entire face was found to be moving. In addition, we had evidence of signal conduction on the NIM monitor in both the orbicularis camron and oculi. A drain was placed through a separate stab incision. This was sewn to the skin with 3-0 nylon. The drain was placed on suction through a Yousif Woodard. The skin was then closed with 4-0 vicryl subcutaneously and 6-0 nylon on the skin. Bacitracin was then applied. The procedure was terminated. He was awoken and brought to the recovery room in stable condition. Blood loss minimal, replacement none. Sponge, needle and instrument count were correct at the end of the procedure. Dr. Maldonado's assistance was essential in identifying, dissecting and preserving the facial nerve.
--- NOTE | 2019-01-14 14:14 | OP.PCM_ITS ---
Report of Operation Date of Procedure: 01/14/19 Pre-Operative Diagnosis: Left parotid mass Post-Operative Diagnosis: same Surgery/Procedure Performed:: left superficial parotidectomy with facial nerve dissection and preservation Description of Surgical Findings:: intact facial nerve fire officer: Ghazala - ARIANE maldonado Assistant: Rafael Maldonado Type of Anesthesia:: General Anesthesiologist: Braydon Baez Specimen's removed: left superfical lobe of the parotid Estimated Blood Loss (mL): minimal Description of Procedure: The patient was taken to the OR on 01/14/19. He was placed in the supine position and given sufficient general endotracheal anesthesia. The head of bed was elevated 30 degrees and the bed was turned 90 degrees clockwise. The NIM facial nerve monitor was used and the electrodes were placed accordingly. The left face was prepped and draped steriley. 1% lidocaine with epinephrine was injected into the skin overlying the intended incision. A modified Wilber incision was made a 15 blade. Bipolar cautery was used for hemostasis. A plane was e stablished sharply on the parotid gland. The ear lobe was retracted posteriorly. The sternocleidomastoid muscle was skeletonized. Next, the mastoid tip and tragal pointer were each dissected and a trough was created between the two anatomic landmarks. Next, we used blunt dissection to locate the main trunk of the facial nerve. The nerve was dissected laterally and gland was removed from the nerve laterally. The pes was identified. Next, the inferior division was dissected. Each branch was dissected and the superficial lobe was removed using bipolar and scissors. The gland was then reflected superiorly. Next, the upper division branches were each dissected and the gland was removed laterally from the nerve. Absolute hemostasis was achieved with bipolar cautery. The gland was then sent for permanent section. The nerve was stimulated at that point and the entire face was found to be moving. In addition, we had evidence of signal conduction on the NIM monitor in both the orbicularis camron and oculi. A drain was placed through a separate stab incision. This was sewn to the skin with 3-0 nylon. The drain was placed on suction through a Yousif Woodard. The skin was then closed with 4-0 vicryl subcutaneously and 6-0 nylon on the skin. Bacitracin was then applied. The procedure was terminated. He was awoken and brought to the recovery room in stable condition. Blood loss minimal, replacement none. Sponge, needle and instrument count were correct at the end of the procedure. Dr. Maldonado's assistance was essential in identifying, dissecting and preserving the facial nerve.
[2019-01-14 14:58] VITALS: BP 131/88; PULSE 80; RESP 16; TEMP 36.1; O2SAT 97
== END 2019-01-14 15:07 | disposition home or self-care (01) ==
LOC: SDC 07:47 → AC 07:47
PROVIDERS: Family Provider Internal Medicine; PCP Internal Medicine; Referring Provider Otolaryngology; Visit Provider Otolaryngology
PROC: (CPT 42410; principal; 2019-01-14 08:30)
DX: D37.030 Neoplasm of uncertain behavior of the parotid salivary glands (principal); E78.00 Pure hypercholesterolemia, unspecified; I10 Essential (primary) hypertension; K21.9 Gastro-esophageal reflux disease without esophagitis; F41.9 Anxiety disorder, unspecified; F32.9 Major depressive disorder, single episode, unspecified; E11.9 Type 2 diabetes mellitus without complications; J45.909 Unspecified asthma, uncomplicated
CPT/HCPCS: 00100; 42415; 36415; 80048; 85027; 88305; 88307; 88313; 88341; 88342; J7120; C1729; J2405

== ENCOUNTER 2019-01-21 05:50 | Emergency (ER) | payer MEDICAID, SELFPAY ==
[2019-01-21 05:51] VITALS: BP 186/117; PULSE 74; RESP 118; TEMP 36.3; O2SAT 96; BMI 36.9
--- NOTE | 2019-01-21 06:25 | ED.VISSUMM ---
- ER Visit Summary Date of Service: 01/21/19 Chief Complaint: Depression and suicidal ideation History of Present Illness: The patient is a 38 M who presents with depression and suicidal ideation that began today. Patient states he is now homeless which has made him more depressed. Patient states he also has not taken any of his medications for the past 5 days. Patient states he has had suicidal thoughts of walking into traffic. Patient states he has a history of depression and suicidal ideations with prior thoughts of cutting his wrists. Patient states he sees a psychiatrist at the [facility] center does not remember her name. Patient also admits to a recent surgery of his left ear. Patient denies any fevers or chills. Patient does admit to some mild redness over this area. Physical Examination: Vital signs are stable except for an elevated blood pressure of 186/117. Patient is afebrile. Patient is in no acute distress. Oral mucosa is pink and moist. Incision over the left ear area has some mild erythema. There is some serous drainage noted. There is no purulent drainage noted. Neck is supple. Trachea is midline. There is no JVD noted. Heart was regular rate and rhythm. Lungs are clear and equal bilateral. Abdomen is soft. Bowel sounds are normal. There is no tenderness. Cranial nerves II through XII are intact. There are no focal motor or sensory deficits noted. The remaining physical exam is within normal limits. Test Results: CBC, comprehensive metabolic profile, a serum alcohol level, and urine tox screen were obtained. Potassium was slightly low at 3.2. The remaining labs are within normal limits. Emergency Department Course and Treatment: Suicide precautions were initiated. She was given a dose of potassium here. Care of the patient was turned over to the oncoming physician pending crisis evaluation. Disposition: Pending per crisis evaluation Impression: Depression with suicidal ideation This note was generated with [employer] dictation software. It may contain incorrect words, spelling, and punctuation that were not noted in review of the chart prior to signing ED Disposition - Plan for ED Patient: Diagnosis: Depression with suicidal ideation Referrals: Patsy Dixon MD [Primary Care Provider] -
--- NOTE | 2019-01-21 06:29 | ED.DCSUM_ITS ---
- ER Visit Summary Date of Service: 01/21/19 Chief Complaint: Depression and suicidal ideation History of Present Illness: The patient is a 38 M who presents with depression and suicidal ideation that began today. Patient states he is now homeless which has made him more depressed. Patient states he also has not taken any of his medications for the past 5 days. Patient states he has had suicidal thoughts of walking into traffic. Patient states he has a history of depression and suicidal ideations with prior thoughts of cutting his wrists. Patient states he sees a psychiatrist at the [facility] center does not remember her name. Patient also admits to a recent surgery of his left ear. Patient denies any fevers or chills. Patient does admit to some mild redness over this area. Physical Examination: Vital signs are stable except for an elevated blood pressure of 186/117. Patient is afebrile. Patient is in no acute distress. Oral mucosa is pink and moist. Incision over the left ear area has some mild erythema. There is some serous drainage noted. There is no purulent drainage noted. Neck is supple. Trachea is midline. There is no JVD noted. Heart was regular rate and rhythm. Lungs are clear and equal bilateral. Abdomen is soft. Bowel sounds are normal. There is no tenderness. Cranial nerves II through XII are intact. There are no focal motor or sensory deficits noted. The remaining physical exam is within normal limits. Test Results: CBC, comprehensive metabolic profile, a serum alcohol level, and urine tox screen were obtained. Potassium was slightly low at 3.2. The remaining labs are within normal limits. Emergency Department Course and Treatment: Suicide precautions were initiated. She was given a dose of potassium here. Care of the patient was turned over to the oncoming physician pending crisis evaluation. Disposition: Pending per crisis evaluation Impression: Depression with suicidal ideation This note was generated with [employer] dictation software. It may contain incorrect words, spelling, and punctuation that were not noted in review of the chart prior to signing ED Disposition - Plan for ED Patient: Diagnosis: Depression with suicidal ideation Referrals: Patsy Dixon MD [Primary Care Provider] -
--- NOTE | 2019-01-21 06:34 | ED.RN ---
patient does not know medication at this time. will have to contact counseling center for medication list
[2019-01-21 06:49] LABS: Absolute Lymphocyte Count 1.79 X10^3/ul (0.83-4.51); Absolute Neutrophil Count 6.7 X10^3/uL (2.0-7.7); Basophil# 0.06 X10^3/uL; Basophil% 0.6 % (0-1); Eosinophil# 0.15 X10^3/uL; Eosinophils% 1.6 % (0-5); Hematocrit 42.8 % (40-54); Hemoglobin 14.7 g/dl (13.0-16.5); Lymphocyte # 1.79 X10^3/ul (4.0); Lymphocyte % 18.9 % (19-41); Mean Corp Hgb Conc 34.3 g/gl (32-36); Mean Corpuscular Hgb 29.8 pg (27.0-32.0); Mean Corpuscular Volume 86.6 fL (80-94); Mean Platelet Vol. 9.3 fl (6.2-12.0); Monocyte# 0.68 X10^3/uL; Monocyte% 7.2 % (0-10); Neutrophil # 6.71 X10^3/uL (2.7-7.7); Neutrophil % 71.1 % (47-70); Platelet Count 275 K/mm3 (150-450); RBC Distribution Width CV 13.4 % (11.6-14.6); RBC Distribution Width SD 41.7 fl (35.1-43.9); Red Blood Count 4.94 M/mm3 (4.6-6.2); White Blood Count 9.5 K/mm3 (4.4-11.0)
[2019-01-21 06:52] VITALS: RESP 18
[2019-01-21 06:52] LABS: POSITIVE COUNT NO; POSITIVE DIFFERENTIAL NO; POSITIVE MORPHOLOGY NO
[2019-01-21 06:55] LABS: Amphetamine Urine VISTA NEGATIVE (<1000 ng/mL); Barbiturate Urine VISTA NEGATIVE (< 200 ng/mL); Benzodiazepine Urine VISTA NEGATIVE (< 200 ng/mL); Cocaine Urine VISTA NEGATIVE (< 300 ng/mL); Ecstacy Urine VISTA NEGATIVE (< 500 ng/mL); Methadone Urine VISTA NEGATIVE (< 300 ng/mL); PCP Urine VISTA NEGATIVE (< 25 ng/mL); THC Urine VISTA NEGATIVE (< 50 ng/mL); Vista UDS pH Range 5
[2019-01-21 07:04] LABS: AST(SGOT) 22 U/L (15-37); Alanine Aminotransfer ALT/SGPT 50 U/L (16-61); Albumin, Serum 3.6 g/dL (3.2-5.0); Alkaline Phosphatase 91 U/L (45-117); Anion Gap 10 (5-15); BUN 13 mg/dL (7-18); Calcium,Total 9.4 mg/dL (8.5-10.1); Chloride 112 mmol/L (98-107); Creatinine, Serum 1.18 mg/dL (0.70-1.30); EST Glomerular Filtration Rate 73 mL/min (>60); Est Glom Filt Rate - Afr Amer 88 mL/min (>60); Estimated Creatinine Clearance 94.04 ml/min; Globulin 3.5 g/dL (2.2-4.2); Glucose 121 mg/dL (74-106); Potassium 3.2 mmol/L (3.5-5.1); Protein, Total 7.1 g/dL (6.4-8.2); Sodium Level 145 mmol/L (136-145)
--- NOTE | 2019-01-21 07:37 | ED.RN ---
CALLED THE [facility]SELING CENTER TO LET THEM KNOW PATIENT IS CLEARED TO BE SEEN. THEY ARE GOING TO PASS THAT ON.
--- NOTE | 2019-01-21 07:41 | ED.RN ---
abner with crisis called and will be in to see the patient
--- NOTE | 2019-01-21 11:12 | ED.VISSUMM ---
- ER Visit Summary Date of Service: 01/21/19 Chief Complaint: [Addendum to initial dictation by Dr. Power Landon] History of Present Illness: The patient is a 38 M [patient presented with depression suicidal ideation and was initially seen by Dr. Vazquez. Patient case turned over to me awaiting evaluation by crisis.] Physical Examination: [] Test Results: [] Emergency Department Course and Treatment: [Patient was evaluated by crisis in the emergency department and at this point patient is not suicidal. 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 Patient states that he saw a car coming and actually walked away from it and moved to the side. He is here with his miguel and her father whom he is staying with currently. They tell me that he is not been sleeping well over the last week or so and he has been working 7 days a week and 8-10 hours a day. Patient also states his not been taking his antidepressant medication for about a week. At this point he denies any suicidal or homicidal ideations. He can contract for safety. He has 2 follow-up appointments this week with counselor and nurse practitioner for psychiatry.] Treatment Plan: [Outpatient follow-up with crisis.] Disposition: [Discharged home in stable condition] Impression: [Depression-noncompliant with medications] This note was generated with [employer] dictation software. It may contain incorrect words, spelling, and punctuation that were not noted in review of the chart prior to signing ED Disposition - Plan for ED Patient: Diagnosis: Depression with suicidal ideation Referrals: Patsy Dixon MD [Primary Care Provider] -
[2019-01-21 11:36] VITALS: BP 153/105; PULSE 67; RESP 14; O2SAT 97
--- NOTE | 2019-01-21 12:10 | ED.DEP ---
ED Disposition - Plan for ED Patient: Diagnosis: Depression with suicidal ideation Instructions: ED Depression, ED Contract, No Harm Referrals: Patsy Dixon MD [Primary Care Provider] - Additional Instructions: See counseling center
--- NOTE | 2019-01-21 13:41 | ED.RN ---
0700; introduced self to pt and verified the reason for his treatment in ED. He admitted to being suicidal. He initially refused a breakfast meal. Sitter in room. 0900: pt given breakfast tray. remains cooperative. family of two in room.
== END 2019-01-21 13:51 | disposition home or self-care (01) ==
PROVIDERS: Emergency Medicine; Emergency Provider Emergency Medicine; Family Provider Internal Medicine; PCP Internal Medicine
DX: R45.851 Suicidal ideations (principal); F32.9 Major depressive disorder, single episode, unspecified; R06.00 Dyspnea, unspecified; Z59.0 Homelessness
CPT/HCPCS: 36415; 80053; 80307; 80320; 85025; 99283; G0480

== ENCOUNTER → 2019-01-22 16:54 | Outpatient (CLI) | payer MEDICAID, SELFPAY ==
[2019-01-21 05:51] VITALS: BMI 36.9
== END ==
PROVIDERS: Family Provider Internal Medicine; PCP Internal Medicine; Referring Provider Otolaryngology; Visit Provider Otolaryngology
DX: T14.8XXA Other injury of unspecified body region, initial encounter (principal)
CPT/HCPCS: 87070; 87077; 87186; 87205

== ENCOUNTER 2019-01-25 12:15 | Emergency (ER) | payer MEDICAID, SELFPAY ==
[2019-01-25 12:17] VITALS: BP 160/80; PULSE 82; RESP 16; TEMP 36.8; O2SAT 99; BMI 35.7
--- NOTE | 2019-01-25 12:43 | ED.DCSUM_ITS ---
- ER Visit Summary Date of Service: 01/25/19 Chief Complaint: Wound infection History of Present Illness: The patient is a 38 M who presents for evaluation of a wound infection around the left ear. Patient states he had surgery by Dr. Nico Rosas on January 14 for lymph node removal. Patient has been having 3 days of increased pain, swelling, drainage from the site and itchiness in the area. Patient states he was seen 3 days ago for the concern for infection and was started on amoxicillin. Yesterday he was notified that the wound has MRSA. Patient states he has not changed his antibiotics. He denies fever. He does complain of pain around the left ear and in the left neck area. No other sympt oms at this time. Physical Examination: Vital signs: afebrile, hemodynamically stable, no hypoxia on room air General: well nourished, well developed, in no distress Skin: warm, dry, no rash, no pallor HEENT: normocephalic and atraumatic; PERRL, EOMI, moist mucous membranes, induration anterior to the left ear, open surgical wound inferior to the left earlobe with no pus noted, induration inferior to the open wound with a palpable tract, draining cloudy serosanguineous fluid when gently pressed. Induration and tenderness in the posterior auricular region. TM is pearly and clear with small amount of blood on the surface. Mild erythema of the external ear canal without any swelling or exudate. Cardiovascular: regular rate and rhythm without murmurs Respiratory: No increased work of breathing MSK: Moves all extremities, no deformities, normal strength Neuro: Awake and alert, oriented ?4. No facial droop, sensation and motor function intact and symmetric Test Results: Abnormal Lab Results 01/25/19 01/25/19 12:50 12:50 WBC 10.4 RBC 5.21 Hgb 15.4 Hct 44.7 MCV 85.8 MCH 29.6 MCHC 34.5 RDW 13.0 RDW Differential 40.5 Plt Count 293 MPV 9.7 Immature Gran % (Auto) 0.700 Neut % (Auto) 60.9 Lymph % (Auto) 24.4 Sullivan % (Auto) 8.4 Eos % (Auto) 4.8 Baso % (Auto) 0.8 Absolute Neuts (auto) 6.3 Absolute Lymphs (auto) 2.53 Total Counted Not Reportable Sodium 141 Potassium 3.7 Chloride 108 H Carbon Dioxide 25.0 Anion Gap 8 BUN 16 Creatinine 1.29 Estim Creat Clear Calc 86.02 Est GFR (MDRD) Af Amer 79 Est GFR (MDRD) Non-Af 65 BUN/Creatinine Ratio 12.4 Glucose 135 H Calcium 10.3 H Medications Given Discontinued Medications Trimethoprim/Sulfamethoxazole (Bactrim Ds) 1 tablet PO X1 ONE Stop: 01/25/19 13:57 Last Admin: 01/25/19 14:12 Dose: 1 tablet Emergency Department Course and Treatment: Patient presents for evaluation of a postsurgical wound around the left ear. Patient does have significant erythema and some drainage concerning for infection. Patient was discussed with Dr. Maldonado, who states the tenderness in the posterior auricular region is related to the surgery and not mastoiditis. Thus no imaging will be performed to the mastoids. Patient had blood work performed. Dr. Maldonado personally evaluated the patient in the emergency department and states that the wound is appr opriately appearing and is typical for dehiscence of a parotid gland surgery. Patient does have the MRSA positive culture of the wound, and was prescribed Bactrim by Dr. Rosas, but he has not picked it up yet. Patient had no leukocytosis. Patient was given the first dose of Bactrim in the emergency department. He was given a new prescription for Bactrim in case he has placed the other prescription. He was instructed to do wet-to-dry dressings. Patient was strongly admonished to make sure he takes the Bactrim and to get today's prescription filled if he cannot find where the other prescription is filled. Patient was discharged home. Treatment Plan: [] Disposition: [] Impression: Wound check, postoperative wound infection This note was generated with [employer] dictation software. It may contain incorrect words, spelling, and punctuation that were not noted in review of the chart prior to signing ED Disposition - Plan for ED Patient: Disposition: Home or Assisted Living Instructions: ED Wound Infec After Surgery Prescriptions: Smz/Tmp Ds [Bactrim Ds] 1 tab PO BID #20 tab Referrals: Patsy Dixon MD [Primary Care Provider] - As Needed Nico Rosas MD [STAFF PHYSICIAN] - 5-7 Days Additional Instructions: Take the antibiotics, especially the Bactrim, twice daily for the full 10 days, even if you feel better before it is complete. Follow-up with Dr. Rosas within 1 week. Do wet-to-dry dressings daily. If you have any worsening of your condition or any new concerning symptoms, please return immediately to the emergency department for another evaluation.
[2019-01-25 13:12] LABS: Absolute Lymphocyte Count 2.53 X10^3/ul (0.83-4.51); Absolute Neutrophil Count 6.3 X10^3/uL (2.0-7.7); Basophil# 0.08 X10^3/uL; Basophil% 0.8 % (0-1); Eosinophils% 4.8 % (0-5); Hematocrit 44.7 % (40-54); Hemoglobin 15.4 g/dl (13.0-16.5); Lymphocyte # 2.53 X10^3/ul (4.0); Lymphocyte % 24.4 % (19-41); Mean Corp Hgb Conc 34.5 g/gl (32-36); Mean Corpuscular Hgb 29.6 pg (27.0-32.0); Mean Corpuscular Volume 85.8 fL (80-94); Mean Platelet Vol. 9.7 fl (6.2-12.0); Monocyte# 0.87 X10^3/uL; Monocyte% 8.4 % (0-10); Neutrophil # 6.33 X10^3/uL (2.7-7.7); Neutrophil % 60.9 % (47-70); Platelet Count 293 K/mm3 (150-450); RBC Distribution Width SD 40.5 fl (35.1-43.9); Red Blood Count 5.21 M/mm3 (4.6-6.2); White Blood Count 10.4 K/mm3 (4.4-11.0)
[2019-01-25 13:13] LABS: POSITIVE COUNT NO; POSITIVE DIFFERENTIAL NO; POSITIVE MORPHOLOGY NO
--- NOTE | 2019-01-25 13:14 | CON.PCM_ITS ---
Problem List (1) Wound infection after surgery Status: Acute Reason for Consult Date of Consultation: 01/25/19 History of Present Illness: The patient is a 38 year old M roughly 1.5 weeks s/p left parotidectomy. this was complicated with MRSA positive wound infection with dehiscence. he returns complaining of increased pain. Past Medical History Medical History: Medical History (Last Updated 01/24/18 @ 10:08 by Mami Howell) Abdominal pain R10.[address] of the abdomen R93.5 Asthma J45.909 Diarrhea R19.7 Nausea & vomiting R11.2 Hypertension I10 Allergies olanzapine [From Zyprexa] Adverse Reaction (Verified 01/25/19 12:16) Vomiting Home Medications: Ambulatory Orders Medication Instructions Recorded Benztropine [Cogentin] 0.5 mg PO DAILY 10/03/13 Fluoxetine [Prozac] 30 mg PO DAILY 10/03/13 [place] Carbonate [Eskalith] 900 mg PO QHS 10/03/13 Albuterol IH (ProAir) [Proair Hfa] 2 puff INHALATION Q6H PRN PRN 11/16/13 sumatriptan 25 mg tablet 25 mg PO ONCE PRN 01/24/18 Aripiprazole [Abilify] 5 mg PO DAILY 02/12/18 Naproxen [Naprosyn] 500 mg PO BID PRN PRN 02/12/18 Hydrochlorothiazide [Hctz] 25 mg PO DAILY #30 tab 09/01/18 Surgical History: Surgical History (Last Updated 01/24/18 @ 10:07 by Mami Howell) History of liver biopsy Z98.890 Surgical History: no surgical history, rotator cuff repair Smoking Status: Never smoker Review of Systems Constitutional: Denies: Chills, Fever, Weight Change HEENT: Denies: Head Aches, Sinus Congestion, Sinus Drainage Respiratory: Denies: Cough, Shortness of breath at rest, Sputum production Gastrointestinal: Denies: Abdominal Pain, Nausea, Vomiting Patient Problems: Active and Suspected Problems (Last Updated 01/24/18 @ 10:08 by Mami Howell) Wound infection after surgery (Acute) - Physical Exam General: Alert, No apparent distress Oral: Moist Mucosa Neck: - - left parotidectomy bridget incision with 1cm area of open wound. minimal skin erythema and no purulent material expressed. Vital Signs Temp Pulse Resp BP Pulse Ox 98.2 F 82 16 160/80 H 99 01/25/19 12:17 01/25/19 12:17 01/25/19 12:17 01/25/19 12:17 01/25/19 12:17 Oxygen Delivery Method Room Air Weight: 123 kg Body Mass Index (BMI) 35.7 Assessment/Plan All Active Problems (Last Updated 01/24/18 @ 10:08 by Mami Howell) Sigmoid thickening (Acute) Wound infection after surgery (Acute) 38 year old male 1.5 wks s/p left superficial parotidectomy with a MRSA positive wound infection and 1cm area of dehiscence. -physical exam s/p dehiscence has not significantly changed since monday - di scussed w/ dr mariann alexander -underwhelming exam with stable area of opening, no purulence; minimally tender -sitting comfortably on his phone - would recommend tylenol for pain -was erx bactrim on monday - never picked up his prescription -wet to dry dressings, bactrim DS two tabs BID, f/u with mariann alexander next week
[2019-01-25 13:29] LABS: Anion Gap 8 (5-15); BUN 16 mg/dL (7-18); BUN/Creat Ratio 12.4 RATIO (10-20); Calcium,Total 10.3 mg/dL (8.5-10.1); Chloride 108 mmol/L (98-107); Creatinine, Serum 1.29 mg/dL (0.70-1.30); EST Glomerular Filtration Rate 65 mL/min (>60); Est Glom Filt Rate - Afr Amer 79 mL/min (>60); Estimated Creatinine Clearance 86.02 ml/min; Glucose 135 mg/dL (74-106); Potassium 3.7 mmol/L (3.5-5.1); Sodium Level 141 mmol/L (136-145)
[2019-01-25 13:30] VITALS: BP 130/74; PULSE 80; RESP 18; TEMP 36.9; O2SAT 98
[2019-01-25] MEDS: Smz/Tmp Ds Tablet 1 TABLET PO (14:12)
[2019-01-25 14:17] VITALS: BP 157/85; PULSE 80; RESP 18; TEMP 35.5
== END 2019-01-25 14:22 | disposition home or self-care (01) ==
PROVIDERS: Emergency Provider Emergency Medicine; Family Provider Internal Medicine; PCP Internal Medicine
DX: T81.41XA Infection following a procedure, superficial incisional surgical site, initial encounter (principal); A49.02 Methicillin resistant Staphylococcus aureus infection, unspecified site; L08.9 Local infection of the skin and subcutaneous tissue, unspecified; J45.909 Unspecified asthma, uncomplicated; I10 Essential (primary) hypertension
CPT/HCPCS: 80048; 85025; 87040; 99283; A4216

== ENCOUNTER 2019-02-19 14:47 | Emergency (ER) | payer MEDICAID, SELFPAY ==
[2019-02-19 14:48] VITALS: BP 148/100; PULSE 68; RESP 18; TEMP 36.4; O2SAT 97; BMI 36.5
--- NOTE | 2019-02-19 15:15 | ED.VISSUMM ---
- ER Visit Summary Date of Service: 02/19/19 Chief Complaint: Bilateral atraumatic ankle pain History of Present Illness: The patient is a 38 M history of bipolar disorder and hypertension. Patient states for the last 6 months he has had chronic bilateral ankle pain. Worse with walking. Denies any falls or trauma. No fever or swelling. No prior ankle or foot surgery. He seen a bonded strand operator at the [facility] and currently he has just started seeing a orthopedic doctor at [facility]. He had an MRI of the right ankle 2 months ago. The orthopedic physician is waiting for those results to determine what if any therapeutic interventions are going to do. Currently he is on naproxen for pain. Physical Examination: Well-appearing middle-age male. Vital signs are stable and afebrile. H EENT exam unremarkable. Neck nontender. Lungs clear to auscultation bilaterally. Heart regular rhythm no murmur. Abdomen is soft and nontender. Patient is moving all 4 extremities and neurovascular intact. Lower extremities have normal range of motion of both hips knees and ankles. Ankles are nontender and nonswollen. Redness or warmth. Normal range of motion. Normal Achilles tendon. DP pulses are intact. Feet are nontender with normal touch sensation logically is awake and alert. Test Results: None Emergency Department Course and Treatment: Patient has had bilateral ankle pain for 6 months. He is already seen a bonded strand operator in our orthopedic surgeon and had an MRI of his right ankle. I explained to both he and his mother that there is really nothing else I can add today from the emergency department standpoint. He has normal exams of both ankles. I do not think any testing will benefit him. He did request something for pain I told him he should stay on his anti-inflammatory and this would not be anything that we would treat with a narcotic. Treatment Plan: Follow-up with his orthopedic doctor Disposition: Discharge Impression: Acute on chronic bilateral ankle pain of uncertain etiology History of bipolar disorder This note was generated with [employer] software. It may contain incorrect words, spelling, and punctuation that were not noted in review of the chart prior to signing ED Disposition - Plan for ED Patient: Referrals: Patsy Dixon MD [Primary Care Provider] -
--- NOTE | 2019-02-19 15:18 | ED.DCSUM_ITS ---
- ER Visit Summary Date of Service: 02/19/19 Chief Complaint: Bilateral atraumatic ankle pain History of Present Illness: The patient is a 38 M history of bipolar disorder and hypertension. Patient states for the last 6 months he has had chronic bilateral ankle pain. Worse with walking. Denies any falls or trauma. No fever or swelling. No prior ankle or foot surgery. He seen a communications agent at the [facility] and currently he has just started seeing a orthopedic doctor at [facility]. He had an MRI of the right ankle 2 months ago. The orthopedic physician is waiting for those results to determine what if any therapeutic interventions are going to do. Currently he is on naproxen for pain. Physical Examination: Well-appearing middle-age male. Vital signs are stable and afebrile. H EENT exam unremarkable. Neck nontender. Lungs clear to auscultation bilaterally. Heart regular rhythm no murmur. Abdomen is soft and nontender. Patient is moving all 4 extremities and neurovascular intact. Lower extremities have normal range of motion of both hips knees and ankles. Ankles are nontender and nonswollen. Redness or warmth. Normal range of motion. Normal Achilles tendon. DP pulses are intact. Feet are nontender with normal touch sensation logically is awake and alert. Test Results: None Emergency Department Course and Treatment: Patient has had bilateral ankle pain for 6 months. He is already seen a communications agent in our orthopedic surgeon and had an MRI of his right ankle. I explained to both he and his mother that there is really nothing else I can add today from the emergency department standpoint. He has normal exams of both ankles. I do not think any testing will benefit him. He did request something for pain I told him he should stay on his anti- inflammatory and this would not be anything that we would treat with a narcotic. Treatment Plan: Follow-up with his orthopedic doctor Disposition: Discharge Impression: Acute on chronic bilateral ankle pain of uncertain etiology History of bipolar disorder This note was generated with [employer] software. It may contain incorrect words, spelling, and punctuation that were not noted in review of the chart prior to signing ED Disposition - Plan for ED Patient: Referrals: Patsy Dixon MD [Primary Care Provider] -
--- NOTE | 2019-02-19 15:18 | ED.DEP ---
ED Disposition - Plan for ED Patient: Disposition: Home or Assisted Living Additional Instructions: Follow-up with your orthopedic doctor. Continue your naproxen for pain.
[2019-02-19 15:29] VITALS: BP 136/78; PULSE 84; RESP 16; O2SAT 98
== END 2019-02-19 15:30 | disposition home or self-care (01) ==
PROVIDERS: Emergency Provider Emergency Medicine; Family Provider Internal Medicine; PCP Internal Medicine
DX: M25.572 Pain in left ankle and joints of left foot (principal); M25.571 Pain in right ankle and joints of right foot; G89.29 Other chronic pain; F31.9 Bipolar disorder, unspecified; I10 Essential (primary) hypertension; Z72.0 Tobacco use
CPT/HCPCS: 99282

== ENCOUNTER 2019-02-24 13:33 | Emergency (ER) | payer MEDICAID, SELFPAY ==
[2019-02-24 13:34] VITALS: BP 142/110; PULSE 83; RESP 18; TEMP 36.7; O2SAT 97; BMI 36.5
--- NOTE | 2019-02-24 13:48 | EKG12_ITS ---
Test Reason : CP Blood Pressure : / mmHG Vent. Rate : 072 BPM Atrial Rate : 072 BPM P-R Int : 180 ms QRS Dur : 118 ms QT Int : 394 ms P-R-T Axes : 035 -47 048 degrees QTc Int : 431 ms Normal sinus rhythm with sinus arrhythmia Left anterior fascicular block Abnormal ECG Confirmed by STEPHEN MAN, DANIELITO ([id number]), editor map ROGE PASTOR ([id number]) on 02/27/2019 9:16:23 AM Referred By: DARRELL Confirmed By:DANIELITO MITCHELL MD
--- NOTE | 2019-02-24 13:48 | RAD_ITS ---
STUDY: X-RAY CHEST REASON FOR EXAM: Male, 38 years old. Chest pain TECHNIQUE: Frontal view of the chest COMPARISON: None. FINDINGS: The lungs are clear. There are no pleural effusions. There is no pneumothorax. The heart is normal in size. The visualized osseous structures are within normal limits. RAD/Chest 1 View (Portable) IMPRESSION: No acute thoracic pathology. Electronically Signed: Keegan Aguilera, at 14:42 EDT Tel , Service support ,
[2019-02-24 13:52] VITALS: O2SAT 95
[2019-02-24 13:58] LABS: Absolute Neutrophil Count 5.3 X10^3/uL (2.0-7.7); Basophil# 0.02 X10^3/uL; Basophil% 0.2 % (0-1); Eosinophil# 0.13 X10^3/uL; Eosinophils% 1.6 % (0-5); Hematocrit 45.2 % (40-54); Lymphocyte % 24.5 % (19-41); Mean Corp Hgb Conc 35.4 g/gl (32-36); Mean Corpuscular Hgb 29.9 pg (27.0-32.0); Mean Corpuscular Volume 84.5 fL (80-94); Mean Platelet Vol. 9.8 fl (6.2-12.0); Monocyte# 0.65 X10^3/uL; Neutrophil # 5.34 X10^3/uL (2.7-7.7); Neutrophil % 65.6 % (47-70); Platelet Count 274 K/mm3 (150-450); RBC Distribution Width CV 14.1 % (11.6-14.6); RBC Distribution Width SD 43.4 fl (35.1-43.9); Red Blood Count 5.35 M/mm3 (4.6-6.2); White Blood Count 8.2 K/mm3 (4.4-11.0)
[2019-02-24 14:01] LABS: POSITIVE COUNT NO; POSITIVE DIFFERENTIAL NO; POSITIVE MORPHOLOGY NO
[2019-02-24 14:14] LABS: D-Dimer Quantitative (DVT/PE) < 0.27 FEU/ug/m (0.27-0.49)
[2019-02-24 14:16] LABS: AST(SGOT) 26 U/L (15-37); Alanine Aminotransfer ALT/SGPT 38 U/L (16-61); Albumin, Serum 4.2 g/dL (3.2-5.0); Alkaline Phosphatase 83 U/L (45-117); Anion Gap 8 (5-15); BUN 16 mg/dL (7-18); BUN/Creat Ratio 12.1 RATIO (10-20); Bilirubin, Direct 0.22 mg/dL (0.00-0.30); Chloride 106 mmol/L (98-107); Creatinine, Serum 1.32 mg/dL (0.70-1.30); EST Glomerular Filtration Rate 64 mL/min (>60); Est Glom Filt Rate - Afr Amer 77 mL/min (>60); Estimated Creatinine Clearance 84.07 ml/min; Globulin 3.2 g/dL (2.2-4.2); Glucose 122 mg/dL (74-106); Lipase 149 U/L (73-393); Potassium 2.9 mmol/L (3.5-5.1); Protein, Total 7.4 g/dL (6.4-8.2); Sodium Level 139 mmol/L (136-145)
[2019-02-24] MEDS: Mag Hydrox/Al Hydrox/Simeth 30 ML UDC PO (14:17)
[2019-02-24] MEDS: 0.9% Normal Saline 1,000 ML 150 ML IV (14:17)
[2019-02-24 14:58] VITALS: BP 139/100; PULSE 60; RESP 15; O2SAT 96
--- NOTE | 2019-02-24 15:11 | ED.VISSUMM ---
- ER Visit Summary Date of Service: 02/24/19 Chief Complaint: [Chest pain] History of Present Illness: The patient is a 38 M [presents the emergency department complaint chest discomfort times 2 days. Patient had intermittent chest discomfort that he describes as sharp. Patient at times states that the pain will last over an hour. Patient believes that it is related to increased stress that he has had at home. He is never had pain like this before. He denies recent travel or surgery. He denies any radiation of the pain. He denies any nausea or vomiting. Patient rates his pain currently as a 7 out of 10. Patient states he notices the pain more when he fell tries to fall asleep. Patient describes the pain being worse with deep breath and certain movements. He has no heart history. No family history of heart disease. Patient does not smoke with his use dipping tobacco. He has a history of hypertension.] Physical Examination: [HEENT-PERRLA, EOMI. Cranial nerves II through XII grossly intact. TMs clear. Mucous membranes moist. No adenopathy. Cardiovascular-regular rate and rhythm without murmur or ectopy Lungs-clear to auscultation, chest wall stable without crepitus or subcu emphysema. Patient does have tenderness palpation over the anterior chest wall that seems to reproduce his pain. Abdomen-normoactive bowel sounds, soft. Patient has some mild epigastric tenderness on palpation. There is no rebound, rigidity, or perineal signs. Extremities-intact ?4, normal range of motion, normal pulses, atraumatic] Test Results: [EKG obtained arrival shows sinus rhythm with a ventricular rate of 72 bpm with occasional PACs. CBC with differential obtained was unremarkable. Chemistries show sodium 139, potassium 2.9, chloride 106, CO2 25, BUN 16, creatinine 1.32. Glucose is 122. D-dimer was less than 0.27. LFTs and lipase were normal. Troponin was less than 0.015. Chest x-ray was normal.] Emergency Department Course and Treatment: [Patient did receive aspirin by EMS and 1 sibling and nitro which had minimal improvement in his pain. Patient was given a GI cocktail which again had minimal improvement in his pain.] Treatment Plan: [I feel patient is low risk for varus I feel the chest pain is atypical and his JERROD risk score is a 1. Feel patient can follow-up as an outpatient with primary care physician.] Disposition: [Discharged home in stable condition.] Impression: [Atypical chest pain] This note was generated with [employer] dictation software. It may contain incorrect words, spelling, and punctuation that were not noted in review of the chart prior to signing ED Disposition - Plan for ED Patient: Referrals: Patsy Dixon MD [Primary Care Provider] -
--- NOTE | 2019-02-24 15:19 | ED.DEP ---
ED Disposition - Plan for ED Patient: Instructions: ED Chest Pain Atypical Unkn Cause Referrals: Patsy Dixon MD [Primary Care Provider] - 3-5 Days
== END 2019-02-24 15:33 | disposition home or self-care (01) ==
PROVIDERS: Emergency Provider Emergency Medicine; Family Provider Internal Medicine; PCP Internal Medicine
DX: R07.89 Other chest pain (principal); I10 Essential (primary) hypertension; R10.816 Epigastric abdominal tenderness; F17.220 Nicotine dependence, chewing tobacco, uncomplicated
CPT/HCPCS: 71045; 80048; 80076; 83690; 84484; 85025; 85379; 93005; 96360; 96361; 99285; J7030; A4216

== ENCOUNTER 2019-02-25 15:33 | Emergency (ER) | payer MEDICAID, SELFPAY ==
[2019-02-24 13:34] VITALS: BMI 36.5
[2019-02-25 15:34] VITALS: BP 145/85; PULSE 70; RESP 16; TEMP 36.3; O2SAT 97; BMI 36.5
--- NOTE | 2019-02-25 15:37 | EKG12_ITS ---
Test Reason : Blood Pressure : / mmHG Vent. Rate : 061 BPM Atrial Rate : 061 BPM P-R Int : 178 ms QRS Dur : 112 ms QT Int : 394 ms P-R-T Axes : 029 -34 062 degrees QTc Int : 396 ms Normal sinus rhythm with sinus arrhythmia Left axis deviation Nonspecific T wave abnormality Abnormal ECG Confirmed by NILSA MAN, JEISON ([id number]), newspaper copy editor ROGE PASTOR ([id number]) on 02/27/2019 9:29:34 AM Referred By: VIJAY Confirmed By:JEISON ASH MD
[2019-02-25] MEDS: Aspirin 81 MG TAB.CHEW 324 MG PO (15:45)
--- NOTE | 2019-02-25 15:45 | RAD_ITS ---
STUDY: X-RAY CHEST REASON FOR EXAM: Male, 38 years old. Chest pain. TECHNIQUE: Single AP portable view of the chest. COMPARISON: Comparison is made with prior study dated February 24, 2019. FINDINGS: EKG electrodes are seen. The lungs are clear and expanded. There is no demonstrated pleural abnormality. Normal size heart. Normal mediastinum and rosemary. Normal visualized pulmonary arteries. Normal visualized aortic arch and descending thoracic aorta. Normal visualized thoracic spine. Normal visualized ribs, clavicles, and shoulders. There is no demonstrated abnormality of the visualized soft tissue structures of the upper abdomen. RAD/Chest 1 View (Portable) IMPRESSION: Normal x-ray examination of the chest. Electronically Signed: Clemente Munoz, at 15:58 EDT , Service support ,
--- NOTE | 2019-02-25 15:46 | ED.DCSUM_ITS ---
- ER Visit Summary Date of Service: 02/25/19 Chief Complaint: Chest pain History of Present Illness: The patient is a 38 M presenting with chest pain. He states this started on Monday. He has had constant pain in his mid chest for the past 4 days. He was seen in the ED yesterday for similar complaints. He denies shortness of breath. Denies radiation of his pain. He states it is 10 out of 10 has been continuous. Nothing makes it better or worse. He is under a lot of stress at work. He was able to go to work today. He has history of hypertension and family history of early heart disease. Denies PE/DVT risk factors. Physical Examination: Vitals are stable. Patient is afebrile. Alert no acute distress. HEENT exam is unremarkable. Neck is supple. Lungs are clear and equal bilaterally. Mid chest tender to palpation with no crepitus Heart is regular rate and rhythm. Abdomen is soft nontender nondistended. Extremities are unremarkable. Skin is warm and dry. No focal neurologic deficit. Remainder of exam is unremarkable. Emergency Department Course and Treatment: Patient was given aspirin, Toradol, Ativan. EKG is sinus rhythm rate of 61. Chest x-ray shows no acute process. CBC chemistries unremarkable other than potassium 2.8. He was given potassium oral replacement. Troponin is negative. D-dimer negative. On reevaluation, patient is feeling much improved. He is given prescription for Naprosyn and short course of Ativan. He has a scheduled appointment with his primary care physician tomorrow. He is advised to keep this appointment. Advised return to ED if worsening complaints. Disposition: Discharge home Impression: Chest wall pain, anxiety This note was generated with [employer] dictation software. It may contain incorrect words, spelling, and punctuation that were not noted in review of the chart prior to signing ED Disposition - Plan for ED Patient: Instructions: ED Strain Chest Wall Prescriptions: Naproxen [Naprosyn] 500 mg PO BID PRN #20 tablet Lorazepam [Ativan] 1 mg PO TID PRN #3 tablet PRN Reason: Anxiety Referrals: Patsy Dixon MD [Primary Care Provider] -
[2019-02-25 15:47] VITALS: O2SAT 98
[2019-02-25] MEDS: LORazepam 1 MG Tablet PO (15:54)
[2019-02-25] MEDS: Ketorolac 30 MG/ML Syringe IV (15:54)
[2019-02-25 16:25] LABS: Absolute Lymphocyte Count 2.01 X10^3/ul (0.83-4.51); Absolute Neutrophil Count 5.3 X10^3/uL (2.0-7.7); Basophil# 0.04 X10^3/uL; Basophil% 0.5 % (0-1); Eosinophil# 0.26 X10^3/uL; Eosinophils% 3.1 % (0-5); Hematocrit 44.9 % (40-54); Hemoglobin 15.8 g/dl (13.0-16.5); Lymphocyte # 2.01 X10^3/ul (4.0); Lymphocyte % 24.1 % (19-41); Mean Corp Hgb Conc 35.2 g/gl (32-36); Mean Corpuscular Hgb 29.6 pg (27.0-32.0); Mean Corpuscular Volume 84.2 fL (80-94); Mean Platelet Vol. 10.1 fl (6.2-12.0); Monocyte# 0.67 X10^3/uL; Neutrophil # 5.33 X10^3/uL (2.7-7.7); Neutrophil % 64.1 % (47-70); Platelet Count 258 K/mm3 (150-450); RBC Distribution Width SD 42.9 fl (35.1-43.9); Red Blood Count 5.33 M/mm3 (4.6-6.2); White Blood Count 8.3 K/mm3 (4.4-11.0)
[2019-02-25 16:28] LABS: Anion Gap 8 (5-15); BUN 15 mg/dL (7-18); BUN/Creat Ratio 12.1 RATIO (10-20); Calcium,Total 9.9 mg/dL (8.5-10.1); Chloride 108 mmol/L (98-107); Creatinine, Serum 1.24 mg/dL (0.70-1.30); EST Glomerular Filtration Rate 68 mL/min (>60); Est Glom Filt Rate - Afr Amer 83 mL/min (>60); Estimated Creatinine Clearance 89.49 ml/min; Glucose 100 mg/dL (74-106); Potassium 2.8 mmol/L (3.5-5.1); Sodium Level 141 mmol/L (136-145)
[2019-02-25 16:29] LABS: POSITIVE COUNT NO; POSITIVE DIFFERENTIAL NO; POSITIVE MORPHOLOGY NO
[2019-02-25 17:01] LABS: D-Dimer Quantitative (DVT/PE) < 0.27 FEU/ug/m (0.27-0.49)
--- NOTE | 2019-02-25 17:16 | ED.DEP ---
ED Disposition - Plan for ED Patient: Instructions: ED Strain Chest Wall Prescriptions: Naproxen [Naprosyn] 500 mg PO BID PRN #20 tablet Lorazepam [Ativan] 1 mg PO TID PRN #3 tablet PRN Reason: Anxiety Referrals: Patsy Dixon MD [Primary Care Provider] -
[2019-02-25 17:39] VITALS: BP 161/89; PULSE 79; RESP 18; O2SAT 98
== END 2019-02-25 17:39 | disposition home or self-care (01) ==
LOC: ED 16:33
PROVIDERS: Emergency Provider Emergency Medicine; Family Provider Internal Medicine; PCP Internal Medicine
DX: R07.89 Other chest pain (principal); F41.9 Anxiety disorder, unspecified; I10 Essential (primary) hypertension; Z82.49 Family history of ischemic heart disease and other diseases of the circulatory system
CPT/HCPCS: 71045; 80048; 84484; 85025; 85379; 93005; 99284; A4216

== ENCOUNTER → 2019-02-28 19:56 | Outpatient (CLI) | payer MEDICAID, SELFPAY ==
[2019-02-25 15:34] VITALS: BMI 36.5
[2019-02-28 20:38] LABS: Absolute Lymphocyte Count 2.55 X10^3/ul (0.83-4.51); Absolute Neutrophil Count 6.3 X10^3/uL (2.0-7.7); Basophil# 0.08 X10^3/uL; Basophil% 0.8 % (0-1); Eosinophil# 0.81 X10^3/uL; Eosinophils% 7.7 % (0-5); Hematocrit 44.2 % (40-54); Hemoglobin 15.7 g/dl (13.0-16.5); Lymphocyte # 2.55 X10^3/ul (4.0); Lymphocyte % 24.1 % (19-41); Mean Corp Hgb Conc 35.5 g/gl (32-36); Mean Corpuscular Hgb 30.3 pg (27.0-32.0); Mean Corpuscular Volume 85.3 fL (80-94); Mean Platelet Vol. 10.2 fl (6.2-12.0); Monocyte# 0.78 X10^3/uL; Monocyte% 7.4 % (0-10); Neutrophil # 6.32 X10^3/uL (2.7-7.7); Neutrophil % 59.7 % (47-70); POSITIVE COUNT NO; POSITIVE DIFFERENTIAL NO; POSITIVE MORPHOLOGY NO; Platelet Count 260 K/mm3 (150-450); RBC Distribution Width CV 13.9 % (11.6-14.6); RBC Distribution Width SD 43.5 fl (35.1-43.9); Red Blood Count 5.18 M/mm3 (4.6-6.2); White Blood Count 10.6 K/mm3 (4.4-11.0)
[2019-02-28 21:06] LABS: ALB/GLOB Ratio 1.6 RATIO (0.9-2.4); AST(SGOT) 23 U/L (15-37); Alanine Aminotransfer ALT/SGPT 39 U/L (16-61); Albumin, Serum 4.5 g/dL (3.2-5.0); Alkaline Phosphatase 100 U/L (45-117); Anion Gap 9 (5-15); BUN 19 mg/dL (7-18); BUN/Creat Ratio 13.4 RATIO (10-20); Calcium,Total 9.9 mg/dL (8.5-10.1); Chloride 107 mmol/L (98-107); Creatinine, Serum 1.42 mg/dL (0.70-1.30); EST Glomerular Filtration Rate 59 mL/min (>60); Est Glom Filt Rate - Afr Amer 71 mL/min (>60); Globulin 2.9 g/dL (2.2-4.2); Glucose 152 mg/dL (74-106); Potassium 2.9 mmol/L (3.5-5.1); Protein, Total 7.4 g/dL (6.4-8.2); Sodium Level 141 mmol/L (136-145); Thyroid Stim Hormone (TSH) 1.62 uIU/mL (0.358-3.74)
== END ==
PROVIDERS: Family Provider Internal Medicine; PCP Internal Medicine; Referring Provider Registered Nurse; Visit Provider Registered Nurse
DX: F31.9 Bipolar disorder, unspecified (principal); Z79.899 Other long term (current) drug therapy
CPT/HCPCS: 36415; 80053; 80178; 82306; 84443; 85025

== ENCOUNTER 2019-03-20 19:22 | Emergency (ER) | payer MEDICAID, SELFPAY ==
[2019-03-20 19:25] VITALS: BP 119/95; PULSE 64; RESP 18; TEMP 36.7; O2SAT 95; BMI 34.8
[2019-03-20] MEDS: 0.9% Normal Saline 1,000 ML 1000 ML IV (20:28)
[2019-03-20] MEDS: Ondansetron 4 MG/2 ML Vial IV (20:28)
[2019-03-20] MEDS: Ketorolac 30 MG/ML Syringe IV (20:28)
[2019-03-20 20:34] LABS: Absolute Lymphocyte Count 2.71 X10^3/ul (0.83-4.51); Absolute Neutrophil Count 6.1 X10^3/uL (2.0-7.7); Basophil# 0.05 X10^3/uL; Basophil% 0.5 % (0-1); Eosinophil# 0.48 X10^3/uL; Eosinophils% 4.6 % (0-5); Hematocrit 43.4 % (40-54); Hemoglobin 14.9 g/dl (13.0-16.5); Lymphocyte # 2.71 X10^3/ul (4.0); Lymphocyte % 26.2 % (19-41); Mean Corp Hgb Conc 34.3 g/gl (32-36); Mean Corpuscular Hgb 29.7 pg (27.0-32.0); Mean Corpuscular Volume 86.6 fL (80-94); Mean Platelet Vol. 9.5 fl (6.2-12.0); Monocyte% 8.7 % (0-10); Neutrophil # 6.14 X10^3/uL (2.7-7.7); Neutrophil % 59.5 % (47-70); Platelet Count 247 K/mm3 (150-450); RBC Distribution Width CV 13.9 % (11.6-14.6); RBC Distribution Width SD 43.6 fl (35.1-43.9); Red Blood Count 5.01 M/mm3 (4.6-6.2); White Blood Count 10.3 K/mm3 (4.4-11.0)
[2019-03-20 20:35] LABS: POSITIVE COUNT NO; POSITIVE DIFFERENTIAL NO; POSITIVE MORPHOLOGY NO
[2019-03-20 20:56] LABS: AST(SGOT) 20 U/L (15-37); Alanine Aminotransfer ALT/SGPT 39 U/L (16-61); Alkaline Phosphatase 74 U/L (45-117); Anion Gap 4 (5-15); BUN 18 mg/dL (7-18); BUN/Creat Ratio 14.5 RATIO (10-20); Bilirubin, Direct 0.12 mg/dL (0.00-0.30); Calcium,Total 9.5 mg/dL (8.5-10.1); Chloride 107 mmol/L (98-107); Creatinine, Serum 1.24 mg/dL (0.70-1.30); EST Glomerular Filtration Rate 68 mL/min (>60); Est Glom Filt Rate - Afr Amer 83 mL/min (>60); Estimated Creatinine Clearance 89.49 ml/min; Globulin 2.8 g/dL (2.2-4.2); Glucose 94 mg/dL (74-106); Lipase 203 U/L (73-393); Potassium 3.3 mmol/L (3.5-5.1); Protein, Total 6.8 g/dL (6.4-8.2); Sodium Level 139 mmol/L (136-145)
--- NOTE | 2019-03-20 21:12 | ED.VISSUMM ---
- ER Visit Summary Date of Service: 03/20/19 Chief Complaint: Periumbilical abdominal pain with nausea. History of Present Illness: The patient is a 38 M history of bipolar and hypertension. Patient states he has abdominal pain around his bellybutton for the last 1 to 2 days. Associated nausea. No vomiting or diarrhea. No melena or dysuria. No fever or trauma. No prior abdominal surgeries. Physical Examination: Well-appearing middle-age male. Vital signs are stable he is afebrile. HEENT exam unremarkable. Moist with memories. Neck nontender. Lungs clear to auscultation bilaterally. Heart regular rhythm no murmur. Abdomen soft. Nondistended normal bowel sounds no peritoneal signs. No signs of obstruction. He complains of tenderness along his umbilicus but there is no hernia or mass. There is absolutely no right upper right lower quadrant tenderness. No McBurney's point tenderness or Elam sign. Moving all 4 extremities. Neurovascular intact. Neurologically is awake and alert. Back nontender. Test Results: CBC normal white count of 10. Hemoglobin 14. Letter lites unremarkable potassium 3.3 normal creatinine and gap. Liver enzymes and lipase are normal. Emergency Department Course and Treatment: Patient treated with IV fluids IV Toradol and Zofran. Repeat exam doing well at 2110. Treatment Plan: Discharged home. Tylenol Motrin for pain. Zofran for nausea. Disposition: Discharge Impression: Abdominal pain secondary to viral syndrome This note was generated with [employer] dictation software. It may contain incorrect words, spelling, and punctuation that were not noted in review of the chart prior to signing ED Disposition - Plan for ED Patient: Referrals: Patsy Dixon MD [Primary Care Provider] -
--- NOTE | 2019-03-20 21:15 | ED.DEP ---
ED Disposition - Plan for ED Patient: Disposition: Home or Assisted Living Instructions: ED Abdominal Pain Unkn Cause Prescriptions: Ondansetron [Zofran Odt] 4 mg PO Q8H PRN PRN #10 tab PRN Reason: Nausea Referrals: Patsy Dixon MD [Primary Care Provider] - 1-2 Days if not improving Additional Instructions: Zofran as needed for nausea. Motrin for pain. Follow-up if not improving. Return if worse
[2019-03-20 21:20] VITALS: BP 128/88; PULSE 60; RESP 18; O2SAT 96
== END 2019-03-20 21:21 | disposition home or self-care (01) ==
PROVIDERS: Emergency Provider Emergency Medicine; Family Provider Internal Medicine; PCP Internal Medicine
DX: B34.9 Viral infection, unspecified (principal); R10.9 Unspecified abdominal pain; R11.0 Nausea; I10 Essential (primary) hypertension; F31.9 Bipolar disorder, unspecified
CPT/HCPCS: 80048; 80076; 83690; 85025; 96361; 96374; 96375; 99284; J7030; A4216; J2405

== ENCOUNTER 2019-04-03 16:44 | Emergency (ER) | payer MEDICAID, SELFPAY ==
[2019-04-03 16:46] VITALS: BP 160/115; PULSE 68; RESP 19; TEMP 36.6; O2SAT 98; BMI 35.2
--- NOTE | 2019-04-03 16:59 | ED.VISSUMM ---
- ER Visit Summary Date of Service: 04/03/19 Chief Complaint: Migraine headache History of Present Illness: The patient is a 38 M who presents with migraine headache that has been getting worse over the past 3 days. Patient states this is similar to prior headaches but worse than usual. Patient admits to some photophobia. Patient admits to nausea and vomiting. Patient admits to some blurred vision. Patient denies any fevers or chills. Patient denies any scotoma. Patient denies any paresthesias or weakness. Patient states the pain does radiate into his neck. Physical Examination: Vital signs are stable. Patient is afebrile. Patient is in no acute distress. Cranial nerves II through XII are intact. Strength is 5/5 bilaterally. There are no sensory deficits noted. Neck is supple. Trachea is midline. There is no JVD noted. Heart was regular rate and rhythm. Lungs are clear and equal bilaterally. Emergency Department Course and Treatment: Patient given IV fluids. Patient was given Benadryl, Compazine, and Toradol. Patient felt better on reevaluation. Patient was instructed to rest in a dark quiet room. Patient was instructed to follow-up with his primary care physician in 5 to 7 days. Patient understood and was agreeable with the plan. All questions were answered. Disposition: Discharge home Impression: Migraine headache This note was generated with lmbang dictation software. It may contain incorrect words, spelling, and punctuation that were not noted in review of the chart prior to signing ED Disposition - Plan for ED Patient: Disposition: Home or Assisted Living Diagnosis: Migraine headache Instructions: ED Headache Migraine Referrals: Patsy Dixon MD [Primary Care Provider] - 5-7 Days
--- NOTE | 2019-04-03 17:02 | ED.DCSUM_ITS ---
- ER Visit Summary Date of Service: 04/03/19 Chief Complaint: Migraine headache History of Present Illness: The patient is a 38 M who presents with migraine headache that has been getting worse over the past 3 days. Patient states this is similar to prior headaches but worse than usual. Patient admits to some photophobia. Patient admits to nausea and vomiting. Patient admits to some blurred vision. Patient denies any fevers or chills. Patient denies any scotoma. Patient denies any paresthesias or weakness. Patient states the pain does radiate into his neck. Physical Examination: Vital signs are stable. Patient is afebrile. Patient is in no acute distress. Cranial nerves II through XII are intact. Strength is 5/5 bilaterally. There are no sensory deficits noted. Neck is supple. Trachea is midline. There is no JVD noted. Heart was regular rate and rhythm. Lungs are clear and equal bilaterally. Emergency Department Course and Treatment: Patient given IV fluids. Patient was given Benadryl, Compazine, and Toradol. Patient felt better on reevaluation. Patient was instructed to rest in a dark quiet room. Patient was instructed to follow-up with his primary care physician in 5 to 7 days. Patient understood an d was agreeable with the plan. All questions were answered. Disposition: Discharge home Impression: Migraine headache This note was generated with [employer] dictation software. It may contain incorrect words, spelling, and punctuation that were not noted in review of the chart prior to signing ED Disposition - Plan for ED Patient: Disposition: Home or Assisted Living Diagnosis: Migraine headache Instructions: ED Headache Migraine Referrals: Patsy Dixon MD [Primary Care Provider] - 5-7 Days
[2019-04-03] MEDS: Ketorolac 30 MG/ML Syringe IV (17:12)
[2019-04-03] MEDS: DiphenhydrAMINE 50 MG/ML Syringe 25 MG IV (17:12)
[2019-04-03] MEDS: 0.9% Normal Saline 1,000 ML 999 ML IV (17:12)
[2019-04-03] MEDS: proCHLORPERazine 10 MG/2 ML Vial IV (17:12)
[2019-04-03 18:54] VITALS: BP 138/98; PULSE 52; RESP 16; O2SAT 97
== END 2019-04-03 18:55 | disposition home or self-care (01) ==
PROVIDERS: Emergency Provider Emergency Medicine; Family Provider Internal Medicine; PCP Internal Medicine
DX: G43.909 Migraine, unspecified, not intractable, without status migrainosus (principal); E66.9 Obesity, unspecified; Z72.0 Tobacco use
CPT/HCPCS: 96361; 96374; 96375; 99283; J7030; A4216

== ENCOUNTER 2019-04-07 18:19 | Emergency (ER) | payer MEDICAID, SELFPAY ==
[2019-04-07 18:20] VITALS: BP 160/107; PULSE 71; RESP 18; TEMP 20; O2SAT 99; BMI 34.8
--- NOTE | 2019-04-07 19:12 | ED.VIS.GEN ---
History of Present Illness Chief Complaint: Headache Informant: Patient Onset: Days - 9 Context: Gradual Onset Timing: Continuous Quality: throbbing Location: bifrontal Current Severity: Moderate Maximum Severity: Moderate Worsened by: light Relieved by: nothing. tried OTC analgesics only. Associated Symptoms: n/v Narrative: Feels like a typical migraine for him except that it has lasted 9 days and he is looking for relief. No recent head injuries. No peripheral neurologic symptoms. No stiff neck or fevers. Prior similar symptoms: Yes - migraines for years - Past Medical History (1) Migraines Status: Chronic Past Medical History - Allergies and Home Meds Allergies/Adverse Reactions: Allergies olanzapine [From Zyprexa] Adverse Reaction (Verified 04/07/19 18:19) Vomiting Primary Care Physician: Patsy Dixon MD [Primary Care Provider] - Surgical History: no surgical history, rotator cuff repair Lives: Spouse/ Significant Other Smoking Status: Never smoker Drugs: None Review of Systems General: Denies: Chills, Fever Eyes: Reports: Blurred Vision - bilaterally. Denies: Diplopia ENT: Denies: Bilateral ear pain, Rhinorrhea, Sore throat Gastrointestinal: Reports: Nausea, Vomiting. Denies: Abdominal pain Skin: Denies: Rash, Abscess, Wounds Neurological: Reports: Headache. Denies: Weakness, Numbness Physical Exam Vital Signs/Narrative: Vital Signs Temp Pulse Resp BP Pulse Ox 04/07/19 18:20 68 F L 71 18 160/107 H 99 Inital Vital Signs reviewed: Yes General: Well nourished, Well developed, No Acute Distress Head: Normocephalic, Atraumatic Eyes: Perrl, EOMI, - - Mild photophobia ENT: Moist mucous membranes, No rhinorrhea Neck: Supple, Nontender, No lymphadenopathy Skin: Normal color, No rash, No Trauma Neurological: Alert, Oriented x3, Cranial nerves II-XII grossly intact, Normal Strength, Normal Sensation, Normal Gait Psychological: Normal affect, Normal Mood Diagnostic/Tx/Re-eval - Medical Decision Making Patient was given IV fluids, Reglan, Benadryl, Toradol, he does feel improved but still has a headache and is asking for something else. On recheck of his blood pressure which was initially high, it is 117/72. I do not feel that sumatriptan and will help since it has been 9 days since the headache started, but dihydroergotamine may so he was given a dose of that and will be discharged home to follow-up. ED Disposition - Plan for ED Patient: Disposition: Home or Assisted Living Diagnosis: Migraine headache Instructions: ED Headache Migraine Prescriptions: Metoclopramide [Reglan] 10 mg PO Q6H PRN #20 tab PRN Reason: Headache Referrals: Patsy Dixon MD [Primary Care Provider] - 3-5 Days if not improving
[2019-04-07] MEDS: Ketorolac 30 MG/ML Syringe IV (19:28)
[2019-04-07] MEDS: 0.9% Normal Saline 1,000 ML 999 ML IV (19:28)
[2019-04-07] MEDS: DiphenhydrAMINE 50 MG/ML Syringe 25 MG IV (19:29)
[2019-04-07] MEDS: Metoclopramide 10 MG/2 ML Vial IV (19:30)
[2019-04-07 20:37] VITALS: BP 117/72; PULSE 97; RESP 16; O2SAT 97
[2019-04-07] MEDS: Dihydroergotamine 1 MG/ML Ampul IV (20:56)
[2019-04-07 21:14] VITALS: PULSE 72; RESP 16; O2SAT 97
== END 2019-04-07 21:16 | disposition home or self-care (01) ==
PROVIDERS: Emergency Provider Emergency Medicine; Family Provider Internal Medicine; PCP Internal Medicine
DX: G43.909 Migraine, unspecified, not intractable, without status migrainosus (principal)
CPT/HCPCS: 96361; 96374; 96375; 99282; J7030; A4216; J1110

== ENCOUNTER 2019-04-29 18:58 | Emergency (ER) | payer MEDICAID, SELFPAY ==
[2019-04-29 18:59] VITALS: BP 152/91; PULSE 65; RESP 17; TEMP 37.1; O2SAT 97; BMI 33.8
--- NOTE | 2019-04-29 19:29 | CT_ITS ---
HISTORY: PT STATED LOWER ABDOM PAIN TODAY TECHNIQUE: Helically acquired images were obtained of the abdomen and pelvis without oral or IV contrast. A radiation dose optimization technique was used for this scan. COMPARISON: Most recent comparison CTs dated January 23, 2018. FINDINGS: # of images incl. paperwork: 531 LUNG BASES: Tiny pleural effusions with minimal dependent basilar atelectasis CT abdomen: Bones are unremarkable. The gallbladder remains. Liver, spleen, pancreas, and adrenal glands are normal. The kidneys are normal. The aorta is normal. There is no intra-or extrahepatic biliary ductal dilatation. CT pelvis: No ascites is present. The prostate gland is not enlarged. The appendix is normal. Series 2 image 136. The bladder is normal. Within the descending colon there is acute diverticulitis. It is a posterior diverticulum that is inflamed with a small amount of focal fluid and thickening to the left paracolic gutter parietal peritoneum. CT/Abdomen/Pelvis without Cont IMPRESSION: Focal area of acute diverticulitis within the descending colon. No evidence of perforation or abscess Individualized dose optimization techniques were used for this CT. at 2024 Reported and signed by: Sarmad Salomon MD Electronically Signed: Sarmad Salomon MD at 20:23 EDT Tel , Service support ,
[2019-04-29 19:48] LABS: Bacteria 0 SEEN /hpf (None Seen); Red Blood Cells-Urine 0 SEEN /hpf (0-5); Squamous Epithelial Cells - UA 0 SEEN /hpf (0-5)
[2019-04-29] MEDS: Morphine 4 MG/ML Syringe IV (19:51)
[2019-04-29] MEDS: Ondansetron 4 MG/2 ML Vial IV (19:51)
[2019-04-29 19:58] LABS: Absolute Lymphocyte Count 2.21 X10^3/ul (0.83-4.51); Absolute Neutrophil Count 9.3 X10^3/uL (2.0-7.7); Basophil# 0.03 X10^3/uL; Basophil% 0.2 % (0-1); Eosinophil# 0.47 X10^3/uL; Eosinophils% 3.5 % (0-5); Hematocrit 46.6 % (40-54); Hemoglobin 16.1 g/dl (13.0-16.5); Lymphocyte # 2.21 X10^3/ul (4.0); Lymphocyte % 16.4 % (19-41); Mean Corp Hgb Conc 34.5 g/gl (32-36); Mean Corpuscular Hgb 30.6 pg (27.0-32.0); Mean Corpuscular Volume 88.6 fL (80-94); Mean Platelet Vol. 9.5 fl (6.2-12.0); Monocyte# 1.38 X10^3/uL; Monocyte% 10.3 % (0-10); Neutrophil # 9.31 X10^3/uL (2.7-7.7); Neutrophil % 69.3 % (47-70); Platelet Count 270 K/mm3 (150-450); RBC Distribution Width CV 13.5 % (11.6-14.6); RBC Distribution Width SD 43.5 fl (35.1-43.9); Red Blood Count 5.26 M/mm3 (4.6-6.2); White Blood Count 13.4 K/mm3 (4.4-11.0)
[2019-04-29 20:00] LABS: Color, Urine Yellow (Yellow); Glucose, Dipstick Normal (Normal); Ketone-Dipstick Negative (Negative); Leukocyte Esterase-Dipstick 25 /ul (Negative); Nitrite-Dipstick Negative (Negative); Occult Blood-Urine Negative /ul (Negative); Protein-Dipstick 30 mg/dl (Negative); Specific Gravity, Urine 1.015 (1.002-1.030); Urine Bilirubin Dipstick Negative (Negative); Urine Clarity Clear (Clear); Urine Urobilinogen Normal (Normal); Urine pH 6.5 (5.0 - 8.0)
[2019-04-29 20:06] LABS: POSITIVE COUNT NO; POSITIVE DIFFERENTIAL NO; POSITIVE MORPHOLOGY NO
[2019-04-29 20:17] LABS: ALB/GLOB Ratio 1.1 RATIO (0.9-2.4); AST(SGOT) 18 U/L (15-37); Alanine Aminotransfer ALT/SGPT 46 U/L (16-61); Albumin, Serum 3.8 g/dL (3.2-5.0); Alkaline Phosphatase 104 U/L (45-117); Anion Gap 7 (5-15); BUN 17 mg/dL (7-18); Calcium,Total 9.9 mg/dL (8.5-10.1); Chloride 104 mmol/L (98-107); Creatinine, Serum 1.21 mg/dL (0.70-1.30); EST Glomerular Filtration Rate 70 mL/min (>60); Est Glom Filt Rate - Afr Amer 85 mL/min (>60); Estimated Creatinine Clearance 91.71 ml/min; Globulin 3.6 g/dL (2.2-4.2); Glucose 68 mg/dL (74-106); Lipase 152 U/L (73-393); Potassium 3.7 mmol/L (3.5-5.1); Protein, Total 7.4 g/dL (6.4-8.2); Sodium Level 140 mmol/L (136-145)
[2019-04-29 20:26] LABS: White Blood Cells 0-5 SEEN /hpf (0-5)
[2019-04-29 20:27] LABS: Mucous, Urine 2+ /hpf (<or=2+)
--- NOTE | 2019-04-29 20:36 | ED.VISSUMM ---
- ER Visit Summary Date of Service: 04/29/19 Chief Complaint: Abdominal pain History of Present Illness: The patient is a 38 M this patient has had abdominal pain that started earlier today. It sharp in the suprapubic area. It does not radiate. Nothing makes it worse or better. He denies any nausea or vomiting. He has had diarrhea. No fevers. He took Rolaids at home without any relief. Physical Examination: Vital signs reviewed. HEENT exam unremarkable. Heart is regular rate and rhythm without murmurs. Lungs are clear to auscultation. Abdomen is soft with tenderness to palpation. No guarding or rebound tenderness. Extremities reveal no edema. Skin exam normal. Neurologic exam normal. Test Results: Labs are unremarkable except for a white blood cell count of 13.4. No urinary tract infection. CAT scan reveals diverticulitis with no abscess or perforation Emergency Department Course and Treatment: Patient was given morphine and Zofran. I will treat him with Augmentin for the diverticulitis. I feel he can be treated as an outpatient due to uncomplicated vital signs and able to tolerate p.o. I will give him naproxen for pain. He will follow-up with his PCP Treatment Plan: [] Disposition: Discharge Impression: Acute uncomplicated diverticulitis This note was generated with [employer] dictation software. It may contain incorrect words, spelling, and punctuation that were not noted in review of the chart prior to signing ED Disposition - Plan for ED Patient: Referrals: Patsy Dixon MD [Primary Care Provider] -
--- NOTE | 2019-04-29 20:38 | ED.DEP ---
ED Disposition - Plan for ED Patient: Disposition: Home or Assisted Living Instructions: ED Diverticulitis Prescriptions: Naproxen [Naprosyn] 500 mg PO BID PRN #20 tab Amox/Clavulanate Tablet [Augmentin Tablet] 875 mg PO TID #30 tab Referrals: Patsy Dixon MD [Primary Care Provider] -
[2019-04-29] MEDS: Amox/Clavulanate 875 MG Tablet PO (20:45)
[2019-04-29 20:47] VITALS: BP 141/92; PULSE 62; RESP 18; O2SAT 97
== END 2019-04-29 20:49 | disposition home or self-care (01) ==
PROVIDERS: Emergency Provider Emergency Medicine; Family Provider Internal Medicine; PCP Internal Medicine
DX: K57.92 Diverticulitis of intestine, part unspecified, without perforation or abscess without bleeding (principal)
CPT/HCPCS: 74176; 80053; 81001; 83690; 85025; 96374; 96375; 99284; A4216; J2405

== ENCOUNTER 2019-04-30 15:50 | Inpatient (IN) | payer MEDICAID, SELFPAY ==
[2019-04-29 18:59] VITALS: BMI 33.8
[2019-04-30 15:50] VITALS: BP 154/99; PULSE 91; RESP 18; TEMP 36.1; O2SAT 97; BMI 33.2
[2019-04-30 16:55] LABS: Bacteria 0 SEEN /hpf (None Seen); Mucous, Urine 0 SEEN /hpf (<or=2+); White Blood Cells 0 SEEN /hpf (0-5)
[2019-04-30 16:58] LABS: Color, Urine Yellow (Yellow); Glucose, Dipstick Normal (Normal); Leukocyte Esterase-Dipstick Negative /ul (Negative); Nitrite-Dipstick Negative (Negative); Occult Blood-Urine 10 /ul (Negative); Protein-Dipstick 100 mg/dl (Negative); Urine Bilirubin Dipstick Negative (Negative); Urine Clarity Sl. Cloudy (Clear); Urine Urobilinogen 1 mg/dl (Normal)
[2019-04-30 16:59] LABS: Absolute Neutrophil Count 14.7 X10^3/uL (2.0-7.7); Basophil# 0.02 X10^3/uL; Basophil% 0.1 % (0-1); Eosinophil# 0.01 X10^3/uL; Eosinophils% 0.1 % (0-5); Hemoglobin 16.6 g/dl (13.0-16.5); Lymphocyte % 7.6 % (19-41); Mean Corp Hgb Conc 35.3 g/gl (32-36); Mean Corpuscular Hgb 30.7 pg (27.0-32.0); Mean Corpuscular Volume 86.9 fL (80-94); Mean Platelet Vol. 9.6 fl (6.2-12.0); Monocyte# 1.09 X10^3/uL; Monocyte% 6.3 % (0-10); Neutrophil # 14.71 X10^3/uL (2.7-7.7); Neutrophil % 85.7 % (47-70); Platelet Count 294 K/mm3 (150-450); RBC Distribution Width CV 13.3 % (11.6-14.6); RBC Distribution Width SD 42.2 fl (35.1-43.9); Red Blood Count 5.41 M/mm3 (4.6-6.2); White Blood Count 17.2 K/mm3 (4.4-11.0)
[2019-04-30 17:07] LABS: Ketone-Dipstick 150 mg/dl (Negative)
[2019-04-30 17:08] LABS: Red Blood Cells-Urine 0-5 SEEN /hpf (0-5); Squamous Epithelial Cells - UA 0-5 SEEN /hpf (0-5)
[2019-04-30 17:09] LABS: Anion Gap 11 (5-15); BUN 17 mg/dL (7-18); BUN/Creat Ratio 13.7 RATIO (10-20); Calcium,Total 10.3 mg/dL (8.5-10.1); Chloride 103 mmol/L (98-107); Creatinine, Serum 1.24 mg/dL (0.70-1.30); EST Glomerular Filtration Rate 68 mL/min (>60); Est Glom Filt Rate - Afr Amer 83 mL/min (>60); Estimated Creatinine Clearance 89.49 ml/min; Glucose 122 mg/dL (74-106); Potassium 3.5 mmol/L (3.5-5.1); Sodium Level 140 mmol/L (136-145)
[2019-04-30 17:09] LABS: Amorphous Sediment 3+ PHOS
[2019-04-30 17:14] LABS: POSITIVE COUNT NO; POSITIVE DIFFERENTIAL NO; POSITIVE MORPHOLOGY NO
--- NOTE | 2019-04-30 17:40 | ED.DCSUM_ITS ---
History of Present Illness Chief Complaint: Abd Pain Informant: Patient Onset: Days - 4 Narrative: Patient diagnosed with diverticulitis yesterday. States pain has gotten worse and persisted. Pain 9 out of 10. Pain left lower quadrant. No fevers. Nausea vomiting x8 times today. He states there is a small amount of blood however not significant. Denies epigastric pain. No history of diverticulitis in the past. States was having pain for 3 days prior to be seen yesterday. He sent home with Augmentin and naproxen. He states he took the Augmentin this morning however it made him sick. No surgical history. History of bipolar disorder. No urinary symptoms. Review of records did note confirmed descending diverticulitis from CT yesterday had a white count of 13 yesterday. Prior similar symptoms: Yes Past Medical History - Allergies and Home Meds Allergies/Adverse Reactions: Allergies olanzapine [From Zyprexa] Adverse Reaction (Verified 04/30/19 15:52) Vomiting Primary Care Physician: Patsy Dixon MD [Primary Care Provider] - Surgical History: no surgical history, rotator cuff repair Smoking Status: Never smoker Review of Systems General: Denies: Chills, Fever, Sweats Eyes: Denies: Visual changes - bilaterally, Diplopia ENT: Denies: Rhinorrhea, Sore throat Cardiovascular: Denies: Chest pain, Palpitations Respiratory: Denies: Dyspnea, Cough, Dyspnea on exertion Gastrointestinal: Reports: Abdominal pain, Nausea, Vomiting. Denies: Diarrhea, Melena, Hematochezia Genitourinary: Denies: Dysuria, Hematuria, Frequency Musculoskeletal: Denies: Back pain, Extremity Pain Skin: Denies: Rash, Wounds Neurological: Denies: Headache, Weakness, Numbness Physical Exam Vital Signs/Narrative: Vital Signs Temp Pulse Resp BP Pulse Ox 04/30/19 15:50 97.0 F L 91 18 154/99 H 97 Inital Vital Signs reviewed: Yes General: Well nourished, Well developed, No Acute Distress Head: Normocephalic, Atraumatic Eyes: Perrl, EOMI ENT: Moist mucous membranes, No rhinorrhea Neck: Supple, Nontender Cardiovascular: Regular rate, Regular rhythm, No murmurs Respiratory: No distress, CTA bilaterally, Chest nontender Abdomen: Soft, Nondistended, Normal bowel sounds, - - Tender palpation left lower quadrant without guarding or rebound. No peritoneal findings. Back: Nontender, Normal Inspection Extremities: Nontender, No edema Skin: Normal color, No rash Neurological: Alert, Oriented x3, Cranial nerves II-XII grossly intact, Normal Strength, Normal Sensation Psychological: Normal affect, Normal Mood Diagnostic/Tx/Re-eval Abnormal Lab Results 04/30/19 04/30/19 04/30/19 16:43 16:43 16:48 WBC 17.2 H RBC 5.41 Hgb 16.6 H Hct 47.0 MCV 86.9 MCH 30.7 MCHC 35.3 RDW 13.3 RDW Differential 42.2 Plt Count 294 MPV 9.6 Immature Gran % (Auto) 0.200 Neut % (Auto) 85.7 H Lymph % (Auto) 7.6 L [place] % (Auto) 6.3 Eos % (Auto) 0.1 Baso % (Auto) 0.1 Absolute Neuts (auto) 14.7 H Absolute Lymphs (auto) 1.30 Total Counted Not Reportable Sodium 140 Potassium 3.5 Chloride 103 Carbon Dioxide 26.0 Anion Gap 11 BUN 17 Creatinine 1.24 Estim Creat Clear Calc 89.49 Est GFR (MDRD) Af Amer 83 Est GFR (MDRD) Non-Af 68 BUN/Creatinine Ratio 13.7 Glucose 122 H Calcium 10.3 H Urine Color Yellow Urine Clarity Sl. Cloudy Urine pH 7.0 Ur Specific [place] 1.010 Urine Protein 100 H Urine Glucose (UA) Normal Urine Ketones 150 H Urine Occult Blood 10 H Urine Nitrite Negative Urine Bilirubin Negative Urine Urobilinogen 1 H Ur Leukocyte Esterase Negative Urine RBC 0-5 SEEN Urine WBC 0 SEEN Ur Squamous Epith Cells 0-5 SEEN Amorphous Sediment 3+ PHOS Urine Bacteria 0 SEEN Urine Mucus 0 SEEN - Medical Decision Making Triage obtain lab work initiated. White count returned at 17. Patient treated with IV fluids, Zofran, morphine. He has a nonsurgical abdomen. There is uncomplicated diverticulitis from CT yesterday. I do not feel further images are necessary at this time. Patient failed outpatient therapy. I will speak with hospitalist for plan admission. I spoke with Dr. Drew, will admit to medical floor for continued management. ED Disposition - Plan for ED Patient: Disposition: [facility] Care [facility] Diagnosis: Acute diverticulitis Referrals: Patsy Dixon MD [Primary Care Provider] -
[2019-04-30] MEDS: Ondansetron 4 MG/2 ML Vial IV (18:03)
[2019-04-30] MEDS: Morphine 4 MG/ML Syringe IV (18:03)
[2019-04-30] MEDS: 0.9% Normal Saline 1,000 ML 1000 ML IV (18:13)
[2019-04-30] MEDS: 0.9% Normal Saline 1,000 ML 150 ML IV (18:13)
[2019-04-30] MEDS: Ciprofloxacin 400 MG/200 ML BAG 200 MG IV (18:13)
--- NOTE | 2019-04-30 18:17 | PCM.HP.STD ---
Problem List (1) Sepsis Status: Acute Qualifiers: Sepsis type: sepsis due to unspecified organism Qualified Code(s): A41.9 - Sepsis, unspecified organism (2) Acute diverticulitis Status: Acute (3) HTN (hypertension) Status: Chronic Qualifiers: Hypertension type: essential hypertension Qualified Code(s): I10 - Essential (primary) hypertension (4) Bipolar disorder Status: Chronic Qualifiers: Active/Remission status: remission status unspecified Qualified Code(s): F31.9 - Bipolar disorder, unspecified (5) Asthma Status: Chronic Qualifiers: Asthma severity: unspecified severity Asthma persistence: unspecified Asthma complication type: unspecified Qualified Code(s): J45.909 - Unspecified asthma, uncomplicated (6) Migraines Status: Chronic Qualifiers: Migraine type: unspecified Status migrainosus presence: without status migrainosus Intractability: not intractable Qualified Code(s): G43.909 - Migraine, unspecified, not intractable, without status migrainosus History of Present Illness Date of Admission: 04/30/19 Chief Complaint: Abdominal pain, N/V/D, recent diverticulitis dx The patient is a 38 y/o M w/ PMHx: Chronic Asthma, Obesity, HTN, Chronic Migraines, Bipolar Disorder, Osteoarthritis who was recently evaluated in the ED on 04/29/19 with history of ongoing abdominal pain x48 hours, worse bilateral lower quadrants, sharp and cramping in nature, rated 10 out of 10 with associated nausea as well as emesis and loose stools without specific fevers or chills with ED evaluation with CT scan notable for diverticulitis with CBC with W BC at that time 13.4 with discharged home on Augmentin; however, patient returns to the ED on 04/30/19 secondary to worsening abdominal pain, worsened nausea and emesis, unable to tolerate any oral intake as well as emesis with attempted Augmentin self administration. Work-up in the ED included T 97, heart rate 91, BP 154/99, respiratory rate 18, 97% on room air, BC with WBC 17.2, hemoglobin 16.6, platelet 294 with increased left shift from prior, BMP with glucose 122, urinalysis not marked appearing. In the ED patient ministered normal saline, Zofran, morphine, Cipro and Flagyl regimen. Past Medical History Past Medical History (Chronic Problems): Chronic Problems (Last Updated 01/24/18 @ 10:08 by Mami Howell) Migraines (Chronic) HTN (hypertension) (Chronic) Bipolar disorder (Chronic) Asthma (Chronic) Medical History: Medical History (Last Updated 01/24/18 @ 10:08 by Mami Howell) Abdominal pain R10.[address] of the abdomen R93.5 Asthma J45.909 Diarrhea R19.7 Nausea & vomiting R11.2 Hypertension I10 Allergies olanzapine [From Zyprexa] Adverse Reaction (Verified 04/30/19 15:52) Vomiting Home Medications: Ambulatory Orders Medication Instructions Recorded [place] Carbonate [Eskalith] 900 mg PO QHS 10/03/13 Albuterol IH (ProAir) [Proair Hfa] 2 puff INHALATION Q6H PRN PRN 11/16/13 sumatriptan 25 mg tablet 25 mg PO ONCE PRN 01/24/18 Hydrochlorothiazide [Hctz] 25 mg PO DAILY #30 tab 09/01/18 Naproxen [Naprosyn] 500 mg PO BID PRN #20 tab 04/29/19 Amlodipine [Norvasc] 5 mg PO DAILY 04/30/19 Diclofenac [Voltaren] 75 mg PO BIDCM 04/30/19 Fluoxetine HCl 40 mg PO DAILY 04/30/19 Surgical History: Surgical History (Last Updated 01/24/18 @ 10:07 by Mami Howell) History of liver biopsy Z98.890 Surgical History: - - Bilateral ear and possibly lymph node surgery, rotator cuff surgery. Psychiatric History: Anxiety, Bipolar, Depression Lives: Spouse/ Significant Other - Patient lives with his fianc?e. Smoking Status: Never smoker Tobacco Use: Non-smoker Alcohol: None Drugs: None - *Family History Maternal History Items: - - Patient notes a maternal family history of hypertension and heart disease. Paternal History Items: - - Patient notes a paternal family history of diabetes, hypertension and heart disease. Review of Systems Constitutional: Reports: Anorexia, Malaise, Weakness, Fatigue. Denies: Chills, Fever, Weight Change HEENT: Denies: Head Aches, Sinus Congestion, Sinus Drainage Cardiovascular: Denies: Chest Pain, Palpitations Respiratory: Denies: Cough, Shortness of breath at rest, Sputum production Gastrointestinal: Reports: Abdominal Pain, Diarrhea, Nausea, Vomiting Genitourinary: Denies: Dysuria Musculoskeletal: Reports: Joint Pain. Denies: Joint Tenderness Skin: Denies: Rash, Wounds Neurological: Denies: Numbness, Tingling, Focal weakness Psychiatric: Reports: Anxiety, Depression. Denies: Homicidal Ideations, Suicidal Ideations Hematologic/ Lymphatic: Denies: Easy Bruising, Easy Bleeding VTE Information - Inpt Only VTE Present on Admission: No VTE Mechan Device Prophylaxis: SCD's VTE Pharm Prophylaxis ordered?: Yes Patient Problems: Active and Suspected Problems (Last Updated 01/24/18 @ 10:08 by Mami Howell) Acute diverticulitis (Acute) Sepsis (Acute) Subjective: Seated upright in ED, fatigued appearance, notes still ongoing mild nausea as well as abdominal discomfort. Objective: Physical Examination: General: awake, alert, oriented x 3 and cooperative, seated upright in ED bed, fatigued appearance, notes ongoing abdominal discomfort. Skin: normal color, turgor, no icterus, cyanosis. HEENT: AT/NC, EOMI, PERRLA, dry MM, no carotid bruits or JVD noted. Lungs: CTA bilaterally, moderate effort, mild decrease BL bases, no rales, ronchi or wheezing. Heart: Mildly tachycardic with regular rhythm; no gallop, rub audible. Abdomen: soft, obese, bilateral lower quadrant, left greater than right discomfort with palpation, no rebound noted, nondistended, mildly hyperactive bowel sounds, no HSM although difficult examination secondary to pain. Extremities: no cyanosis, clubbing, or edema. Neurological: patient awake, alert, oriented x 3; cognitive function intact; pupils equally reactive to light and accomodation; cranial nerves II-XII grossly normal, moving all 4 extremities, no focal deficits, strength moderately global decrease secondary to acute presentation. Psychiatric: affect appears fatigued, no acute evidence of depressive or anxiety feelings. - Physical Exam Vital Signs Temp Pulse Resp BP Pulse Ox 97.0 F L 91 18 154/99 H 97 04/30/19 15:50 04/30/19 15:50 04/30/19 15:50 04/30/19 15:50 04/30/19 15:50 Oxygen Delivery Method Room Air Weight: 251 lb 8.759 oz Body Mass Index (BMI) 33.2 Laboratory Tests Past 24 Hrs 0604/30/19 04/30/19 16:43 16:43 16:48 WBC 17.2 H RBC 5.41 Hgb 16.6 H Hct 47.0 MCV 86.9 MCH 30.7 MCHC 35.3 RDW 13.3 RDW Differential 42.2 Plt Count 294 MPV 9.6 Immature Gran % (Auto) 0.200 Neut % (Auto) 85.7 H Lymph % (Auto) 7.6 L [place] % (Auto) 6.3 Eos % (Auto) 0.1 Baso % (Auto) 0.1 Absolute Neuts (auto) 14.7 H Absolute Lymphs (auto) 1.30 Total Counted Not Reportable Sodium 140 Potassium 3.5 Chloride 103 Carbon Dioxide 26.0 Anion Gap 11 BUN 17 Creatinine 1.24 Estim Creat Clear Calc 89.49 Est GFR (MDRD) Af Amer 83 Est GFR (MDRD) Non-Af 68 BUN/Creatinine Ratio 13.7 Glucose 122 H Calcium 10.3 H Urine Color Yellow Urine Clarity Sl. Cloudy Urine pH 7.0 Ur Specific [place] 1.010 Urine Protein 100 H Urine Glucose (UA) Normal Urine Ketones 150 H Urine Occult Blood 10 H Urine Nitrite Negative Urine Bilirubin Negative Urine Urobilinogen 1 H Ur Leukocyte Esterase Negative Urine RBC 0-5 SEEN Urine WBC 0 SEEN Ur Squamous Epith Cells 0-5 SEEN Amorphous Sediment 3+ PHOS Urine Bacteria 0 SEEN Urine Mucus 0 SEEN Assessment/Plan All Active Problems (Last Updated 01/24/18 @ 10:08 by Mami Howell) Sigmoid thickening (Acute) Wound infection after surgery (Acute) Acute diverticulitis (Acute) Sepsis (Acute) The patient is a 38 y/o M w/ PMHx: Chronic Asthma, Obesity, HTN, Chronic Migraines, Bipolar Disorder, Osteoarthritis who was recently evaluated in the ED on 04/29/19 with history of ongoing abdominal pain x48 hours, worse bilateral lower quadrants, sharp and cramping in nature, rated 10 out of 10 with associated nausea as well as emesis and loose stools without specific fevers or chills with ED evaluation with CT scan notable for diverticulitis with CBC with WBC at that time 13.4 with discharged home on Augmentin; however, patient returns to the ED on 04/30/19 secondary to worsening abdominal pain, worsened nausea. (1) Acute Sepsis secondary to Acute Descending Diverticulitis: CT A/P w/ focal area of acute diverticulitis within the descending colon with no evidence of perforation or abscess obtained on 04/29/19, initial evaluation. Admission CBC w/ WBC 17.2 w/ L shift, afebrile in ED. Will admit to [facility], maintain on aggressive hydration, monitor I&Os, maintain NPO status w/ bowel rest, treat with zosyn regimen, famotidine, anti-emetics, pain regimen PRN. Consider diet advancement to clears in AM if clinically improved. (2) Hypertension: Continue home regimen including Norvasc, adding hydrochlorothiazide given presentation, PRN hydralazine. (3) Chronic asthma: Encourage head of bed, IS, PRN albuterol. (4) Bipolar disorder: Continue home fluoxetine and lithium regimen. (5) Osteoarthritis: Holding NSAID regimen given acute presentation, resume once appropriate. PRN pain regimen is available. (6) Chronic migraines: If necessary may administer sumatriptan. (7) Obesity: Weight loss and lifestyle changes encouraged. (8) GERD: Famotidine IV while n.p.o. status. (9) DVT prophylaxis: SCDs, Lovenox. Code Visit Inpatient E&M: 97691 Init Hosp L3
[2019-04-30 18:37] VITALS: BMI 33.2
[2019-04-30 19:00] VITALS: BP 156/104; PULSE 81; RESP 18; TEMP 36.7; O2SAT 96
[2019-04-30 19:38] LABS: Magnesium 1.8 mg/dL (1.6-2.6)
[2019-04-30] MEDS: metroNIDAZOLE 500 MG/100 ML BAG 100 MG IV (19:44)
[2019-04-30] MEDS: 0.9% Normal Saline 1,000 ML 125 ML IV (19:44)
[2019-04-30 19:50] VITALS: BMI 32.9
[2019-04-30 19:51] LABS: Hemoglobin A1c 5.3 % (4.2-6.3)
[2019-04-30] MEDS: HYDROcodone Bitartrate/Apap 5/325 Tablet PO (19:55)
[2019-05-01] MEDS: Morphine 2 MG/ML Syringe IV (01:45)
[2019-05-01 01:52] VITALS: BP 136/82; PULSE 72; RESP 16; TEMP 37.4; O2SAT 99
[2019-05-01] MEDS: 0.9% Normal Saline 1,000 ML 125 ML IV (03:15)
[2019-05-01 06:38] LABS: Absolute Neutrophil Count 8.7 X10^3/uL (2.0-7.7); Basophil# 0.03 X10^3/uL; Basophil% 0.2 % (0-1); Eosinophil# 0.16 X10^3/uL; Eosinophils% 1.3 % (0-5); Hematocrit 42.9 % (40-54); Hemoglobin 14.5 g/dl (13.0-16.5); Lymphocyte % 15.7 % (19-41); Mean Corp Hgb Conc 33.8 g/gl (32-36); Mean Corpuscular Hgb 29.6 pg (27.0-32.0); Mean Corpuscular Volume 87.6 fL (80-94); Mean Platelet Vol. 9.9 fl (6.2-12.0); Monocyte# 1.26 X10^3/uL; Monocyte% 10.4 % (0-10); Neutrophil # 8.72 X10^3/uL (2.7-7.7); Neutrophil % 72.1 % (47-70); Platelet Count 256 K/mm3 (150-450); RBC Distribution Width CV 13.6 % (11.6-14.6); RBC Distribution Width SD 42.7 fl (35.1-43.9); White Blood Count 12.1 K/mm3 (4.4-11.0)
[2019-05-01 06:42] LABS: POSITIVE COUNT NO; POSITIVE DIFFERENTIAL NO; POSITIVE MORPHOLOGY NO
[2019-05-01 06:56] LABS: ALB/GLOB Ratio 0.9 RATIO (0.9-2.4); AST(SGOT) 14 U/L (15-37); Alanine Aminotransfer ALT/SGPT 33 U/L (16-61); Albumin, Serum 3.1 g/dL (3.2-5.0); Alkaline Phosphatase 90 U/L (45-117); Anion Gap 9 (5-15); BUN 17 mg/dL (7-18); BUN/Creat Ratio 14.8 RATIO (10-20); Chloride 109 mmol/L (98-107); Creatinine, Serum 1.15 mg/dL (0.70-1.30); EST Glomerular Filtration Rate 75 mL/min (>60); Est Glom Filt Rate - Afr Amer 90 mL/min (>60); Globulin 3.3 g/dL (2.2-4.2); Glucose 98 mg/dL (74-106); Potassium 3.5 mmol/L (3.5-5.1); Protein, Total 6.4 g/dL (6.4-8.2); Sodium Level 144 mmol/L (136-145)
--- NOTE | 2019-05-01 08:55 | PN_ITS ---
Patient Problems: Active and Suspected Problems (Last Updated 01/24/18 @ 10:08 by Mami Howell) Acute diverticulitis (Acute) Sepsis (Acute) Subjective: Chief complaint: Follow-up after admission for acute diverticulitis of the descending colon with sepsis. Patient seen and examined. No acute events overnight. He is still having lower abdominal pain but improved. Denies any more nausea vomiting. Denies fever chills. However, he is feeling better. His vital signs are stable. - Physical Exam General: Alert, Oriented x3, Cooperative, No apparent distress HEENT: Atraumatic, PERRLA, EOMI, Normocephalic Oral: Moist Mucosa, No Gingival or Mucosal Lesions/ Ulcerations Neck: Supple, No JVD, Negative Carotid Bruits, Trachea Midline, Thyroid Normal Size and Texture Lungs: Clear to auscultation, No rhonchi, No wheeze, No rales, Diminished Cardiovascular: Regular rate, Regular Rhythm, Normal S1, Normal S2, PMI Normal Abdomen: Bowel Sounds Present, Soft, Non-Distended, No Hepato-splenomegaly, Obese, Tender - Mild lower abdomen tenderness, no guarding or rigidity. Extremities: No clubbing, No cyanosis, No edema Skin: No rashes, No breakdown Lymphatic: No Cervical, Supraclavicular, or Inguinal Adenopathy Neurological: Cranial nerves II-XII grossly intact, Motor Exam 5/5 strength throughout Psych/Mental Status: Normal Affect, Appropriate, Alert and oriented to time, place, person, mood and affect Vital Signs Temp Pulse Resp BP Pulse Ox 99.3 F H 72 16 136/82 H 99 05/01/19 01:52 05/01/19 01:52 05/01/19 01:52 05/01/19 01:52 05/01/19 01:52 Oxygen Delivery Method Room Air Weight: 253 lb 1.451 oz Body Mass Index (BMI) 32.9 Intake and Output for Last 24 Hours 04/29/19 04/30/19 05/01/19 23:59 23:59 23:59 Intake Total 1571 / 1571 Balance 1571 / 1571 Laboratory Tests Past 24 Hrs 04/30/19 04/30/19 04/30/19 16:43 16:43 16:43 WBC 17.2 H RBC 5.41 Hgb 16.6 H Hct 47.0 MCV 86.9 MCH 30.7 MCHC 35.3 RDW 13.3 RDW Differential 42.2 Plt Count 294 MPV 9.6 Immature Gran % (Auto) 0.200 Neut % (Auto) 85.7 H Lymph % (Auto) 7.6 L [place] % (Auto) 6.3 Eos % (Auto) 0.1 Baso % (Auto) 0.1 Absolute Neuts (auto) 14.7 H Absolute Lymphs (auto) 1.30 Total Counted Not Reportable Sodium 140 Potassium 3.5 Chloride 103 Carbon Dioxide 26.0 Anion Gap 11 BUN 17 Creatinine 1.24 Estim Creat Clear Calc 89.49 Est GFR (MDRD) Af Amer 83 Est GFR (MDRD) Non-Af 68 BUN/Creatinine Ratio 13.7 Glucose 122 H Hemoglobin A1c Calcium 10.3 H Magnesium 1.8 Total Bilirubin AST ALT Alkaline Phosphatase Total Protein Albumin Globulin Albumin/Globulin Ratio Urine Color Urine Clarity Urine pH Ur Specific [place] Urine Protein Urine Glucose (UA) Urine Ketones Urine Occult Blood Urine Nitrite Urine Bilirubin Urine Urobilinogen Ur Leukocyte Esterase Urine RBC Urine WBC Ur Squamous Epith Cells Amorphous Sediment Urine Bacteria Urine Mucus 04/30/19 04/30/19 05/01/19 16:43 16:48 05:50 WBC 12.1 H RBC 4.90 Hgb 14.5 Hct 42.9 MCV 87.6 MCH 29.6 MCHC 33.8 RDW 13.6 RDW Differential 42.7 Plt Count 256 MPV 9.9 Immature Gran % (Auto) 0.300 Neut % (Auto) 72.1 H Lymph % (Auto) 15.7 L [place] % (Auto) 10.4 H Eos % (Auto) 1.3 Baso % (Auto) 0.2 Absolute Neuts (auto) 8.7 H Absolute Lymphs (auto) 1.90 Total Counted Not Reportable Sodium Potassium Chloride Carbon Dioxide Anion Gap BUN Creatinine Estim Creat Clear Calc Est GFR (MDRD) Af Amer Est GFR (MDRD) Non-Af BUN/Creatinine Ratio Glucose Hemoglobin A1c 5.3 Calcium Magnesium Total Bilirubin AST ALT Alkaline Phosphatase Total Protein Albumin Globulin Albumin/Globulin Ratio Urine Color Yellow Urine Clarity Sl. Cloudy Urine pH 7.0 Ur Specific [place] 1.010 Urine Protein 100 H Urine Glucose (UA) Normal Urine Ketones 150 H Urine Occult Blood 10 H Urine Nitrite Negative Urine Bilirubin Negative Urine Urobilinogen 1 H Ur Leukocyte Esterase Negative Urine RBC 0-5 SEEN Urine WBC 0 SEEN Ur Squamous Epith Cells 0-5 SEEN Amorphous Sediment 3+ PHOS Urine Bacteria 0 SEEN Urine Mucus 0 SEEN 05/01/19 05:50 WBC RBC Hgb Hct MCV MCH MCHC RDW RDW Differential Plt Count MPV Immature Gran % (Auto) Neut % (Auto) Lymph % (Auto) [place] % (Auto) Eos % (Auto) Baso % (Auto) Absolute Neuts (auto) Absolute Lymphs (auto) Total Counted Sodium 144 Potassium 3.5 Chloride 109 H Carbon Dioxide 26.0 Anion Gap 9 BUN 17 Creatinine 1.15 Estim Creat Clear Calc 96.50 Est GFR (MDRD) Af Amer 90 Est GFR (MDRD) Non-Af 75 BUN/Creatinine Ratio 14.8 Glucose 98 Hemoglobin A1c Calcium 9.0 Magnesium Total Bilirubin 0.70 AST 14 L ALT 33 Alkaline Phosphatase 90 Total Protein 6.4 Albumin 3.1 L Globulin 3.3 Albumin/Globulin Ratio 0.9 Urine Color Urine Clarity Urine pH Ur Specific [place] Urine Protein Urine Glucose (UA) Urine Ketones Urine Occult Blood Urine Nitrite Urine Bilirubin Urine Urobilinogen Ur Leukocyte Esterase Urine RBC Urine WBC Ur Squamous Epith Cells Amorphous Sediment Urine Bacteria Urine Mucus CT/Abdomen/Pelvis without Cont IMPRESSION: Focal area of acute diverticulitis within the descending colon. No evidence of perforation or abscess Individualized dose optimization techniques were used for this CT. at 2024 Reported and signed by: Sarmad Salomon MD Electronically Signed: Sarmad Salomon MD at 20:23 EDT Tel , Service support , Medical Necessity - Tobacco Use Smoking Status: Never smoker Tobacco Use: Non-smoker Assessment/Plan All Active Problems (Last Updated 01/24/18 @ 10:08 by Mami Howell) Acute diverticulitis (Acute) Sepsis (Acute) This is a 38 years old male patient presented to the emergency room because of lower abdominal pain with nausea and vomiting and he was found to have acute diverticulitis of the descending colon with sepsis and he failed outpatient treatment. #1 acute diverticulitis of the descending colon/sepsis: He is on IV Zosyn, IV fluids, IV morphine PRN for pain and IV antiemetics. He failed treatment as outpatient because of intractable nausea and vomiting and he returned back to the ED. Has been afebrile, white blood cell count is trending down. Symptoms started to improve. Plan: Continue same treatment, start clear liquid diet, repeat CBC tomorrow morning. #2 hypertension: Blood pressure stable, continue Norvasc, keep holding HCTZ, IV hydralazine PRN. #3 bipolar disorder: Stable, continue lithium and fluoxetine. #4 asthma: Clinically stable, pulse ox is maintained on room air. Continue albuterol nebulizer as needed. #5 chronic migraines: Stable, sumatriptan held. #6 GERD: He is on IV Pepcid twice daily. #7 DVT prophylaxis: Subcu Lovenox. This note was generated with [employer] dictation software. It may contain incorrect words, spelling, and punctuation that were not noted in checking the note before signing. Code Visit Inpatient E&M: 02310 Subs Hosp L2
[2019-05-01 09:04] VITALS: BP 131/80; PULSE 64; RESP 16; TEMP 36.7; O2SAT 97
[2019-05-01] MEDS: HYDROcodone Bitartrate/Apap 5/325 Tablet PO ×2 (09:25→23:56)
[2019-05-01] MEDS: Enoxaparin 40 MG/0.4 ML Syringe SC (09:27)
[2019-05-01] MEDS: FLUoxetine 20 MG Capsule 40 MG PO (09:27)
[2019-05-01] MEDS: amLODIPine 5 MG Tablet PO (09:27)
--- NOTE | 2019-05-01 10:20 | CASEMGMT ---
RN SANCHEZ Face to Face with patient for initial transition planning/care coordination assessment. RN CM introduced self and role at [facility]. Patient lying in bed, alert and oriented. Patient willing to participate in assessment and is able to answer all questions appropriately. Care providers, pharmacy, and demographics verified. Patient wishes to discharge home, denies need for home health at this time. Patient states he has no further needs or concerns at this time. CM to follow for discharge planning needs that may arise. PCP: [facility] Specialists: [facility]; Jacky, neurology Preferred Pharmacy: [facility] Insurance: [employer] Prescription Benefit: yes Living Will/HPOA: none LNOK: annita Living Arrangements: Patient lives with annita and her parents in lower level apartment. Transportation: annita's parents DME/HHC: Denies DME or HHC Disposition Plan: Patient to discharge home with family support and follow-up plans in place. Dary MULTANI, RN, CM
[2019-05-01 13:14] VITALS: BP 134/94; PULSE 57; RESP 16; TEMP 36.6; O2SAT 99
[2019-05-01] MEDS: 0.9% Normal Saline 1,000 ML 100 ML IV (13:28)
--- NOTE | 2019-05-01 15:24 | CHAPLAIN ---
Type of Pastoral Visit _x__ Initial Visit ___ Follow-up Visit ___ On-call Visit ___ General Patient Visit ___ Spiritual Assessment ___ Family Conference ___ Bereavement ___ Rapid Response ___ Code Blue ___ Other (describe below) Pastoral Care Referral From _x__ Patient ___ Family ___ Nurse ___ Physician ___ Crimp Setter ___ Record Clerk ___ Other (describe below) Sacrament/Intervention _x__ Active listening ___ Anointing ___ Episcopal ___ Bereavement ___ Communion ___ Pili exploration ___ ___ Life review _x__ Prayer ___ Reconciliation ___ Sacrament of Sick _x__ Supportive presence ___ Wedding ___ Other (describe below) Pastoral Comments
[2019-05-01] MEDS: Ondansetron 4 MG/2 ML Vial IV (22:19)
[2019-05-01 23:00] VITALS: BP 136/89; PULSE 62; RESP 18; TEMP 36.6; O2SAT 97
[2019-05-01] MEDS: MELATONIN 3 MG TABLET PO (23:59)
[2019-05-02 05:00] VITALS: BP 125/90; PULSE 53; RESP 18; TEMP 36.4; O2SAT 95
[2019-05-02 06:27] LABS: Absolute Lymphocyte Count 1.93 X10^3/ul (0.83-4.51); Absolute Neutrophil Count 5.1 X10^3/uL (2.0-7.7); Basophil# 0.04 X10^3/uL; Basophil% 0.5 % (0-1); Eosinophil# 0.41 X10^3/uL; Hematocrit 40.3 % (40-54); Hemoglobin 13.4 g/dl (13.0-16.5); Lymphocyte # 1.93 X10^3/ul (4.0); Lymphocyte % 23.7 % (19-41); Mean Corp Hgb Conc 33.3 g/gl (32-36); Mean Corpuscular Hgb 29.7 pg (27.0-32.0); Mean Corpuscular Volume 89.4 fL (80-94); Mean Platelet Vol. 9.7 fl (6.2-12.0); Monocyte# 0.67 X10^3/uL; Monocyte% 8.2 % (0-10); Neutrophil # 5.05 X10^3/uL (2.7-7.7); Neutrophil % 62.2 % (47-70); Platelet Count 240 K/mm3 (150-450); RBC Distribution Width CV 13.5 % (11.6-14.6); RBC Distribution Width SD 43.6 fl (35.1-43.9); Red Blood Count 4.51 M/mm3 (4.6-6.2); White Blood Count 8.1 K/mm3 (4.4-11.0)
[2019-05-02 06:32] LABS: POSITIVE COUNT NO; POSITIVE DIFFERENTIAL NO; POSITIVE MORPHOLOGY NO
--- NOTE | 2019-05-02 08:13 | PCM.PROGNOTE ---
Patient Problems: Active and Suspected Problems (Last Updated 01/24/18 @ 10:08 by Mami Howell) Acute diverticulitis (Acute) Sepsis (Acute) Subjective: Chief complaint: Follow-up after admission for acute diverticulitis of the descending colon with sepsis. Patient seen and examined. No acute events overnight. This morning, he complained of increasing pain and his sister mentioned that he threw up twice last night. His vital signs are stable, afebrile, white blood cell count is back to normal. - Physical Exam General: Alert, Oriented x3, Cooperative, No apparent distress HEENT: Atraumatic, PERRLA, EOMI, Normocephalic Oral: Moist Mucosa, No Gingival or Mucosal Lesions/ Ulcerations Neck: Supple, No JVD, Negative Carotid Bruits, Trachea Midline, Thyroid Normal Size and Texture Lungs: Clear to auscultation, Normal air movement, No rhonchi, No wheeze, No rales Cardiovascular: Regular rate, Regular Rhythm, Normal S1, Normal S2 Abdomen: Bowel Sounds Present, Soft, Non-Distended, No Hepato-splenomegaly, Tender - Minimal tenderness. Extremities: No clubbing, No cyanosis, No edema Skin: No rashes, No breakdown Lymphatic: No Cervical, Supraclavicular, or Inguinal Adenopathy Neurological: Cranial nerves II-XII grossly intact, Neuro grossly intact Psych/Mental Status: Normal Affect, Appropriate Vital Signs Temp Pulse Resp BP Pulse Ox 97.5 F L 53 L 18 125/90 H 95 05/02/19 05:00 05/02/19 05:00 05/02/19 05:00 05/02/19 05:00 05/02/19 05:00 Oxygen Delivery Method Room Air Weight: 253 lb 1.451 oz Body Mass Index (BMI) 32.9 Intake and Output for Last 24 Hours 04/30/19 05/01/19 05/02/19 23:59 23:59 23:59 Intake Total 4003 / 5417 2087 / 2087 Output Total 1290 / 1290 Balance 4003 / 4877 797 / 797 Laboratory Tests Past 24 Hrs 05/02/19 05:55 WBC 8.1 RBC 4.51 L Hgb 13.4 Hct 40.3 MCV 89.4 MCH 29.7 MCHC 33.3 RDW 13.5 RDW Differential 43.6 Plt Count 240 MPV 9.7 Immature Gran % (Auto) 0.400 Neut % (Auto) 62.2 Lymph % (Auto) 23.7 [place] % (Auto) 8.2 Eos % (Auto) 5.0 Baso % (Auto) 0.5 Absolute Neuts (auto) 5.1 Absolute Lymphs (auto) 1.93 Total Counted Not Reportable Medical Necessity - Tobacco Use Smoking Status: Never smoker Tobacco Use: Non-smoker Assessment/Plan All Active Problems (Last Updated 01/24/18 @ 10:08 by Mami Howell) Acute diverticulitis (Acute) Sepsis (Acute) This is a 38 years old male patient presented to the emergency room because of lower abdominal pain with nausea and vomiting and he was found to have acute diverticulitis of the descending colon with sepsis and he failed outpatient treatment. #1 acute diverticulitis of the descending colon/sepsis: Remained on IV Zosyn, IV fluids, IV morphine PRN for pain and IV antiemetics. Started on clear liquids yesterday, started having increasing pain with nausea and vomiting last night. I am afraid the patient is seeking pain medications now. His white blood cell count is normal. He has been afebrile, other vital signs are stable. Plan: Start IV Toradol, [place], continue IV morphine, go back to n.p.o. #2 hypertension: Blood pressure stable, continue Norvasc, keep holding HCTZ, IV hydralazine PRN. #3 bipolar disorder: Stable, continue lithium and fluoxetine. #4 asthma: Clinically stable, pulse ox is maintained on room air. Continue albuterol nebulizer as needed. #5 chronic migraines: Stable, sumatriptan held. #6 GERD: He is on IV Pepcid twice daily. #7 DVT prophylaxis: DC subcu Lovenox, low risk patient, ambulate.. This note was generated with [employer] dictation software. It may contain incorrect words, spelling, and punctuation that were not noted in checking the note before signing. Code Visit Inpatient E&M: 80968 Subs Hosp L2
[2019-05-02 09:01] VITALS: BP 135/89; PULSE 51; RESP 18; TEMP 36.8; O2SAT 97
[2019-05-02] MEDS: FLUoxetine 20 MG Capsule 40 MG PO (09:16)
[2019-05-02] MEDS: amLODIPine 5 MG Tablet PO (09:16)
[2019-05-02] MEDS: Docusate Sodium 100 MG Capsule PO ×2 (09:18→21:12)
[2019-05-02 14:08] VITALS: BP 129/93; PULSE 65; RESP 18; TEMP 36.4; O2SAT 96
[2019-05-02] MEDS: 0.9% Normal Saline 1,000 ML 75 ML IV (14:11)
[2019-05-02] MEDS: Ketorolac 15 MG/ML Vial 30 MG IV ×2 (14:38→21:03)
[2019-05-02 19:51] VITALS: BP 145/88; PULSE 57; RESP 18; TEMP 36.5; O2SAT 98
[2019-05-02 21:00] VITALS: RESP 18
[2019-05-03 02:00] VITALS: BP 141/90; PULSE 65; RESP 16; TEMP 36.6; O2SAT 94
[2019-05-03] MEDS: 0.9% Normal Saline 1,000 ML 75 ML IV (05:15)
[2019-05-03] MEDS: Ketorolac 15 MG/ML Vial 30 MG IV ×2 (05:16→13:14)
--- NOTE | 2019-05-03 08:40 | PCM.DC ---
- Discharge Diagnoses Current Active Problems: Current Active and Chronic Problems (Last Updated 01/24/18 @ 10:08 by Mami Howell) Acute diverticulitis (Acute) Sepsis (Acute) HTN (hypertension) (Chronic) Bipolar disorder (Chronic) Asthma (Chronic) You will use the following diet at home:: Cardiac, Other - Light diet, advance as tolerated. Your food should be the consistency of: Regular Discharge Activity: Return to Normal Activity Weight Bearing Status: Full weight bearing Call your doctor if you observe: Fever of 101 or Higher, Shortness of breath, Dizziness, Fainting spells, Chest pain, Increased palpitations (irregular heartbeat), Uncontrolled pain Instructions: Diverticulitis Allergies/Adverse Reactions: Allergies olanzapine [From Zyprexa] Adverse Reaction (Verified 04/30/19 15:52) Vomiting Medications to take at Discharge [place] Carbonate [Eskalith] 900 mg PO QHS 10/03/13 Albuterol IH (ProAir) [Proair Hfa] 2 puff INHALATION Q6H PRN PRN 11/16/13 sumatriptan 25 mg tablet 25 mg PO ONCE PRN 01/24/18 Hydrochlorothiazide [Hctz] 25 mg PO DAILY #30 tab 09/01/18 Amlodipine [Norvasc] 5 mg PO DAILY 04/30/19 Diclofenac [Voltaren] 75 mg PO BIDCM 04/30/19 Fluoxetine HCl 40 mg PO DAILY 04/30/19 Amox/Clavulanate Tablet [Augmentin Tablet] 875 mg PO Q12H #14 tab 05/03/19 Naproxen [Naprosyn] 500 mg PO TID PRN PRN #20 tab 05/03/19 The following prescriptions were given: Amox/Clavulanate Tablet [Augmentin Tablet] 875 mg PO Q12H #14 tab Transmission Status: Pending to [facility] [id number] Naproxen [Naprosyn] 500 mg PO TID PRN PRN #20 tab PRN Reason: Abdominal pain. Transmission Status: Pending to [facility] [place] - [id number] Primary Care Physician: Patsy Dixon MD [Primary Care Provider] - Please follow up with your Primary Care Physician in: 1 week. Test Results: Test results from this visit will be discussed in further detail at your follow-up appointment, if applicable.
[2019-05-03 09:12] VITALS: BP 148/99; PULSE 69; RESP 20; TEMP 36.4; O2SAT 99
[2019-05-03] MEDS: Docusate Sodium 100 MG Capsule PO (09:15)
[2019-05-03] MEDS: FLUoxetine 20 MG Capsule 40 MG PO (09:16)
[2019-05-03] MEDS: amLODIPine 5 MG Tablet PO (09:16)
[2019-05-03] MEDS: 0.9% NaCl Peripheral Flush Adult/Peds IV ×3 (09:27→13:23)
[2019-05-03] MEDS: Ondansetron 4 MG/2 ML Vial IV (09:27)
[2019-05-03] MEDS: Acetaminophen 325 MG Tablet 650 MG PO (09:34)
--- NOTE | 2019-05-03 09:39 | NURSING ---
This nurse stopped Zosyn and NS IVF locked IV and flushed with NS 5ml before and after Zofran and then again 5ml before and after PePcid. Reconnected the IVF of NS and Zosyn.
--- NOTE | 2019-05-03 11:40 | NURSING ---
Sitting on edge of bed holding emesis bag. Pt gagging. States he vomited. This nurse looked in emesis bag and there was only sm amt of clear, frothy drainage that resembled phlegm. I'm going to have to stay now arent I. Education given regarding that he still will most likely go home. Pt did order a large amt of full liquids for breakfast. This nurse asked him if he ate everything on his tray. Patient stated yes. This nurse encouraged him to order a full liquid diet for lunch around noon but not order so much. Seems to understand.
--- NOTE | 2019-05-03 12:48 | PCM.DC.SUM ---
Discharge Date and Diagnosis - Problem List Patient Problems: Active and Suspected Problems (Last Updated 01/24/18 @ 10:08 by Mami Howell) Acute diverticulitis (Acute) Sepsis (Acute) Date of Admission: 04/30/19 Date of Discharge: 05/03/19 - Primary Discharge Diagnosis Active and Suspected Problems (Last Updated 01/24/18 @ 10:08 by Mami Howell) #1 acute diverticulitis of the descending colon (Acute) #2 sepsis (Acute) - Secondary Discharge Diagnosis Chronic Problems (Last Updated 01/24/18 @ 10:08 by Mami Howell) Migraines (Chronic) HTN (hypertension) (Chronic) Bipolar disorder (Chronic) Asthma (Chronic) Hospital Course and Treatment Imaging Results: CT/Abdomen/Pelvis without Cont IMPRESSION: Focal area of acute diverticulitis within the descending colon. No evidence of perforation or abscess Individualized dose optimization techniques were used for this CT. at 2024 Reported and signed by: Sarmad Salomon MD Electronically Signed: Sarmad Salomon MD at 20:23 EDT Tel , Service support , Operations: None Procedures: None Summary of Care Provided: Patient seen and examined on the day of discharge and appeared to be stable to be discharged home. He complained of pain again but he has been afebrile, leukocytosis improved. He has been asking for pain medications. He was started on full liquid diet and he did okay. The patient is a 38 year old M admitted because of abdominal pain with nausea and vomiting and he was found to have findings consistent with acute diverticulitis of the descending colon with sepsis. Patient was treated with oral antibiotics as outpatient but he feels that he came to the emergency department. CT scan abdomen performed and revealed findings mentioned above. He did have significant leukocytosis. Patient was treated with IV fluids, IV Zosyn, kept on n.p.o. as well as IV antiemetics. With treatment, his white blood cell count came down to normal. He remained afebrile throughout the admission. His other vital signs were stable throughout admission. Although he complained of abdominal pain but he tolerated full liquid diet. Patient discharged home in a stable medical condition, discharged on Augmentin 875 mg p.o. twice daily for 7 days to complete total treatment of 10 days, discharged on naproxen as needed for pain, recommended to use light diet and advance as tolerated, recommended to follow up with PCP in 1. Patient Problems: Active and Suspected Problems (Last Updated 01/24/18 @ 10:08 by Mami Howell) Acute diverticulitis (Acute) Sepsis (Acute) - Physical Exam General: Alert, Oriented x3, Cooperative, No apparent distress HEENT: Atraumatic, PERRLA, EOMI, Normocephalic Oral: Moist Mucosa, No Gingival or Mucosal Lesions/ Ulcerations Neck: Supple, No JVD, Negative Carotid Bruits, Trachea Midline, Thyroid Normal Size and Texture Lungs: Clear to auscultation, Normal air movement, No rhonchi, No wheeze, No rales Cardiovascular: Regular rate, Regular Rhythm, Normal S1, Normal S2, PMI Normal Abdomen: Bowel Sounds Present, Soft, Non Tender, Non-Distended, No Hepato-splenomegaly Extremities: No clubbing, No cyanosis, No edema Skin: No rashes, No breakdown Lymphatic: No Cervical, Supraclavicular, or Inguinal Adenopathy Neurological: Cranial nerves II-XII grossly intact, Neuro grossly intact Psych/Mental Status: Normal Affect, Appropriate Vital Signs Temp Pulse Resp BP Pulse Ox 97.6 F L 69 20 H 148/99 H 99 05/03/19 09:12 05/03/19 09:12 05/03/19 09:12 05/03/19 09:12 05/03/19 09:12 Oxygen Delivery Method Room Air Weight: 253 lb 1.451 oz Body Mass Index (BMI) 32.9 Intake and Output for Last 24 Hours 05/01/19 05/02/19 05/03/19 23:59 23:59 23:59 Intake Total 4003 / 5417 3677.7 / 3677.7 476.6 / 476.6 Output Total 1290 / 1290 Balance 4003 / 4877 2387.7 / 2387.7 476.6 / 476.6 Discharge Activity: Return to Normal Activity Weight Bearing Status: Full weight bearing Call your doctor if you observe: Fever of 101 or Higher, Shortness of breath, Dizziness, Fainting spells, Chest pain, Increased palpitations (irregular heartbeat), Uncontrolled pain Home Medications: Medications to take at Discharge [place] Carbonate [Eskalith] 900 mg PO QHS 10/03/13 Albuterol IH (ProAir) [Proair Hfa] 2 puff INHALATION Q6H PRN PRN 11/16/13 sumatriptan 25 mg tablet 25 mg PO ONCE PRN 01/24/18 Hydrochlorothiazide [Hctz] 25 mg PO DAILY #30 tab 09/01/18 Amlodipine [Norvasc] 5 mg PO DAILY 04/30/19 Diclofenac [Voltaren] 75 mg PO BIDCM 04/30/19 Fluoxetine HCl 40 mg PO DAILY 04/30/19 Amox/Clavulanate Tablet [Augmentin Tablet] 875 mg PO Q12H #14 tab 05/03/19 Naproxen [Naprosyn] 500 mg PO TID PRN PRN #20 tab 05/03/19 Following Prescrptions Were Given to Patient: Amox/Clavulanate Tablet [Augmentin Tablet] 875 mg PO Q12H #14 tab Transmission Status: Received by [facility] [id number] Naproxen [Naprosyn] 500 mg PO TID PRN PRN #20 tab PRN Reason: Abdominal pain. Transmission Status: Received by [facility] [id number] Primary Care Physician: Patsy Dixon MD [Primary Care Provider] - Please follow up with your Primary Care Physician in: 1 week. Patient Instructions: Diverticulitis Disposition: Home Minutes spent on discharge:: 26 Patient Condition:: Stable Medical Necessity - Tobacco Use Smoking Status: Never smoker Tobacco Use: Non-smoker Meaningful Use Info Meaningful Use Diagnoses (Choose all that apply): None applicable Code Visit Inpatient E&M: 22174 Disch Hosp
--- NOTE | 2019-05-03 13:09 | NURSING ---
Pt reports Diarrhea x2. Not seen. Explained that it is probably the Col[place]. Pt just finished lunch and states he has reflux Isn't that nausea. Education given regarding reflux. Focused Assessment complete at this time.
[2019-05-03] MEDS: proMETHazine 25 MG/ML Syringe 6.25 MG IV (13:26)
[2019-05-03 13:28] VITALS: BP 137/89; PULSE 62; RESP 18; TEMP 36.7; O2SAT 99
[2019-05-03 17:33] VITALS: BP 159/99; PULSE 60; RESP 20; TEMP 36.4; O2SAT 100
--- NOTE | 2019-05-06 14:03 | CASEMGMT ---
JOSE BRADFORD DC PHONE CALL DC DATE: 05/03/19 DC Disposition: Home LACE/STRATA: 15/ Intro role of CM to patient via phone. Pt states he still has mild pain, is taking medications as prescribed. JOSE BRADFORD reviewed medications- pt is continuing to take antibiotics. F/U appointment made. No further questions and no care improvement suggestions given. Digna SANDERSN RN ACM
== END 2019-05-03 17:32 | disposition home or self-care (01) | DRG 244 ==
LOC: ED 18:29 → MS3 19:02
PROVIDERS: Admitting Provider Family Medicine; Emergency Provider Emergency Medicine; Family Provider Internal Medicine; PCP Internal Medicine; Referring Provider Family Medicine; Visit Provider Hospitalist
DX: K57.32 Diverticulitis of large intestine without perforation or abscess without bleeding (principal); I10 Essential (primary) hypertension; F31.9 Bipolar disorder, unspecified; M19.90 Unspecified osteoarthritis, unspecified site; J45.909 Unspecified asthma, uncomplicated; G43.909 Migraine, unspecified, not intractable, without status migrainosus
CPT/HCPCS: 36415; 74176; 80048; 80053; 81001; 83036; 83690; 83735; 85025; 97802; 99284; J7030; A4216; J0744; J2405; J3490

== ENCOUNTER 2019-05-14 16:12 | Emergency (ER) | payer MEDICAID, SELFPAY ==
[2019-05-14 16:12] VITALS: BP 138/102; PULSE 82; RESP 18; TEMP 36.6; O2SAT 97; BMI 33.0
--- NOTE | 2019-05-14 16:39 | ED.DCSUM_ITS ---
- ER Visit Summary Date of Service: 05/14/19 Chief Complaint: Lower gastrointestinal bleeding History of Present Illness: The patient is a 38 M who presents with bleeding from his rectum today. Patient states it is a large amount of blood per rectum. Patient states he has a history of diverticulitis and was recently hospitalized for that. Patient states the pain is over his lower abdomen and worse on the left. Patient describes the pain is sharp. Patient states nothing makes the pain better or worse. Patient denies any urinary complaints. Denies any fevers or chills. Patient denies any lightheadedness or dizziness. Physical Examination: Vital signs are stable. Patient is afebrile. Patient is in no acute distress. Patient continued to play games on his phone during the examination. Pupils are equal, round, and reactive to light bilaterally. Extraocular muscles are intact. Conjunctiva is clear. There is no pallor of the conjunctiva. Oral mucosa is pink and moist. Neck is supple. Trachea is midline. There is no JVD noted. Heart was regular rate and rhythm. Lungs are clear and equal bilaterally. Abdomen is soft. Bowel sounds are normal. There is mild lower abdominal tenderness. There is no rebound or guarding noted. Rectal exam showed good sphincter tone. There is brown stool. There are no masses noted. Test Results: CBC showed a mild leukocytosis of 14.6. Hemoglobin and hematocrit were normal. Basic metabolic profile showed a potassium of 3.3. Glucose is 141. The remainder was within normal limits. INR was normal at 1.0. PTT was normal at 28.2. Urinalysis does not show any evidence of urinary tract infect ion. Stool was Hemoccult positive. Emergency Department Course and Treatment: Patient was given IV fluids, Zofran, and morphine. Patient felt better on reevaluation. Patient is hemodynamically stable. Hemoglobin and hematocrit are normal. Patient is tolerating oral fluids. There is no gross blood on rectal exam. I feel patient is safe to be discharged home with oral antibiotics. Patient was given a prescription for Augmentin. Patient was instructed to follow-up with his primary care physician in 3 to 5 days. Patient was instructed to return if worse in any way. Patient understood and was agreeable with plan. All questions were answered. Disposition: Discharge home Impression: Diverticulitis This note was generated with [employer] software. It may contain incorrect words, spelling, and punctuation that were not noted in review of the chart prior to signing ED Disposition - Plan for ED Patient: Disposition: Home or Assisted Living Diagnosis: Diverticulitis Instructions: Diverticulitis Prescriptions: Amox/Clavulanate Tablet [Augmentin Tablet] 875 mg PO Q12H #20 tab Prescription Printed Referrals: Patsy Dixon MD [Primary Care Provider] - 3-5 Days
[2019-05-14] MEDS: Ondansetron 4 MG/2 ML Vial IV (16:47)
[2019-05-14 16:53] LABS: Prothrombin Time (Protime)PT. 13.3 SECONDS (11.7-14.9)
[2019-05-14 16:54] LABS: Partial Thromboplast Time 28.2 Seconds (24.1-36.2)
[2019-05-14 16:59] LABS: Bacteria 0 SEEN /hpf (None Seen); Red Blood Cells-Urine 0 SEEN /hpf (0-5)
--- NOTE | 2019-05-14 17:00 | RAD_ITS ---
STUDY: X-RAY - ACUTE ABDOMINAL SERIES REASON FOR EXAM: Male, 38 years old. Abdominal pain and hematochezia TECHNIQUE: Single view of the chest. Supine, and erect view(s) of the abdomen were obtained. COMPARISON: None. FINDINGS: The lungs are clear and expanded. Normal size heart. Normal mediastinum and rosemary. Normal visualized pulmonary arteries. Normal visualized aortic arch and descending thoracic aorta. There is a non-specific bowel gas pattern. The soft tissue structures of the abdomen and pelvis are unremarkable. Normal visualized osseous structures. RAD/Acute Abdomen Inc Chest IMPRESSION: Normal x-ray examination of the chest, abdomen, and pelvis. Electronically Signed: Nico Raymond MD at 18:04 EDT , Service support ,
[2019-05-14 17:04] LABS: Color, Urine Yellow (Yellow); Glucose, Dipstick Normal (Normal); Ketone-Dipstick Negative (Negative); Leukocyte Esterase-Dipstick 25 /ul (Negative); Nitrite-Dipstick Negative (Negative); Occult Blood-Urine Negative /ul (Negative); Protein-Dipstick 15 mg/dl (Negative); Specific Gravity, Urine 1.015 (1.002-1.030); Urine Bilirubin Dipstick Negative (Negative); Urine Clarity Clear (Clear); Urine Urobilinogen Normal (Normal)
[2019-05-14 17:05] LABS: ALB/GLOB Ratio 1.2 RATIO (0.9-2.4); AST(SGOT) 16 U/L (15-37); Absolute Lymphocyte Count 2.38 X10^3/ul (0.83-4.51); Absolute Neutrophil Count 10.3 X10^3/uL (2.0-7.7); Alanine Aminotransfer ALT/SGPT 31 U/L (16-61); Alkaline Phosphatase 116 U/L (45-117); Anion Gap 11 (5-15); BUN 17 mg/dL (7-18); BUN/Creat Ratio 13.1 RATIO (10-20); Basophil# 0.06 X10^3/uL; Basophil% 0.4 % (0-1); Calcium,Total 10.1 mg/dL (8.5-10.1); Chloride 107 mmol/L (98-107); EST Glomerular Filtration Rate 65 mL/min (>60); Eosinophil# 0.51 X10^3/uL; Eosinophils% 3.5 % (0-5); Est Glom Filt Rate - Afr Amer 78 mL/min (>60); Estimated Creatinine Clearance 85.36 ml/min; Globulin 3.4 g/dL (2.2-4.2); Glucose 141 mg/dL (74-106); Hematocrit 46.7 % (40-54); Hemoglobin 16.5 g/dl (13.0-16.5); Lipase 244 U/L (73-393); Lymphocyte # 2.38 X10^3/ul (4.0); Lymphocyte % 16.3 % (19-41); Mean Corp Hgb Conc 35.3 g/gl (32-36); Mean Corpuscular Hgb 30.9 pg (27.0-32.0); Mean Corpuscular Volume 87.5 fL (80-94); Mean Platelet Vol. 10.6 fl (6.2-12.0); Monocyte# 1.32 X10^3/uL; Monocyte% 9.1 % (0-10); Neutrophil # 10.26 X10^3/uL (2.7-7.7); Neutrophil % 70.5 % (47-70); POSITIVE COUNT NO; POSITIVE DIFFERENTIAL NO; POSITIVE MORPHOLOGY NO; Platelet Count 275 K/mm3 (150-450); Potassium 3.3 mmol/L (3.5-5.1); Protein, Total 7.4 g/dL (6.4-8.2); RBC Distribution Width CV 13.3 % (11.6-14.6); RBC Distribution Width SD 42.1 fl (35.1-43.9); Red Blood Count 5.34 M/mm3 (4.6-6.2); Sodium Level 145 mmol/L (136-145); White Blood Count 14.6 K/mm3 (4.4-11.0)
[2019-05-14 17:12] LABS: Fine Granular Cast- Urine 0-5 SEEN /lpf (0-5)
[2019-05-14 17:13] LABS: Hyaline Cast 0-5 SEEN /lpf (0-5); Mucous, Urine 1+ /hpf (<or=2+)
[2019-05-14 17:14] LABS: Amorphous Sediment 1+; White Blood Cells 0-5 SEEN /hpf (0-5)
[2019-05-14 17:17] LABS: Squamous Epithelial Cells - UA 0-5 SEEN /hpf (0-5)
[2019-05-14 18:29] VITALS: PULSE 84; RESP 16; O2SAT 98
[2019-05-14 19:10] VITALS: BP 147/90; PULSE 66; RESP 17; O2SAT 97
[2019-05-14] MEDS: Amox/Clavulanate 875 MG Tablet PO (19:17)
[2019-05-14] MEDS: Morphine 4 MG/ML Syringe IV (19:17)
== END 2019-05-14 19:37 | disposition home or self-care (01) ==
PROVIDERS: Emergency Provider Emergency Medicine; Family Provider Internal Medicine; PCP Internal Medicine
DX: K57.92 Diverticulitis of intestine, part unspecified, without perforation or abscess without bleeding (principal)
CPT/HCPCS: 74022; 80053; 81001; 82274; 83690; 85025; 85610; 85730; 99284; A4216; J2405

== ENCOUNTER 2019-05-15 13:17 | Emergency (ER) | payer MEDICAID, SELFPAY ==
[2019-05-14 16:12] VITALS: BMI 33.0
[2019-05-15 13:18] VITALS: BP 149/99; PULSE 76; RESP 14; TEMP 36.6; O2SAT 98; BMI 34.4
[2019-05-15 13:21] VITALS: BP 149/99; PULSE 86; RESP 15; O2SAT 98
[2019-05-15 13:25] VITALS: BP 149/99; PULSE 72; RESP 15; TEMP 36.6; O2SAT 97
--- NOTE | 2019-05-15 13:29 | CT_ITS ---
STUDY: CT ABDOMEN AND PELVIS WITHOUT CONTRAST REASON FOR EXAM: Male, 38 years old. One month history of abdominal pain. RADIATION DOSAGE (If Supplied By Facility): CTDIvol = ( 22.36 ) mGy, DLP = ( 1279.15 ) mGycm TECHNIQUE: Transaxial images were obtained from the dome of the diaphragm to the symphysis pubis without oral contrast, and without intravenous contrast. Sagittal and coronal images were reconstructed. Individualized dose optimization techniques were used for this CT. COMPARISON: Comparison is made with prior study dated April 29, 2019. FINDINGS: Mild degree of right basilar atelectasis. The visualized portions of the heart are within normal limits. There is decreased attenuation of the liver consistent with steatosis. Normal gallbladder and extrahepatic biliary system. Normal spleen. Normal pancreas. Normal bilateral adrenal glands. Normal right kidney. Normal left kidney. Normal visualized stomach. Normal small intestine. Minimal residual inflammatory changes are seen in the region of the descending colon and sigmoid colon. The appendix is visualized and appears normal. Normal abdominal aorta. Normal inferior vena cava. There is borderline retroperitoneal lymphadenopathy with enlarged nodes no greater than 10mm in the short axis diameter. Normal urinary bladder. Normal abdominal wall. Normal osseous structures. CT/Abdomen/Pelvis without Cont IMPRESSION: Minimal residual inflammatory changes seen in the descending colon and proximal sigmoid colon. Electronically Signed: Clemente Munoz, at 15:08 EDT , Service support ,
[2019-05-15 13:37] LABS: Absolute Lymphocyte Count 2.01 X10^3/ul (0.83-4.51); Absolute Neutrophil Count 6.7 X10^3/uL (2.0-7.7); Basophil# 0.05 X10^3/uL; Basophil% 0.5 % (0-1); Eosinophil# 0.52 X10^3/uL; Eosinophils% 5.1 % (0-5); Hematocrit 45.3 % (40-54); Hemoglobin 15.8 g/dl (13.0-16.5); Lymphocyte # 2.01 X10^3/ul (4.0); Lymphocyte % 19.8 % (19-41); Mean Corp Hgb Conc 34.9 g/gl (32-36); Mean Corpuscular Hgb 30.6 pg (27.0-32.0); Mean Corpuscular Volume 87.6 fL (80-94); Monocyte# 0.83 X10^3/uL; Monocyte% 8.2 % (0-10); Neutrophil # 6.72 X10^3/uL (2.7-7.7); Platelet Count 253 K/mm3 (150-450); RBC Distribution Width CV 13.3 % (11.6-14.6); RBC Distribution Width SD 42.6 fl (35.1-43.9); Red Blood Count 5.17 M/mm3 (4.6-6.2); White Blood Count 10.2 K/mm3 (4.4-11.0)
[2019-05-15 13:38] LABS: POSITIVE COUNT NO; POSITIVE DIFFERENTIAL NO; POSITIVE MORPHOLOGY NO
--- NOTE | 2019-05-15 13:38 | ED.VIS.GEN ---
History of Present Illness Chief Complaint: Abd Pain Informant: Patient Onset: Weeks Current Severity: Mild Narrative: Left-sided abdominal pain since February he indicates he was diagnosed April 30 with diverticulitis he has been on antibiotics which she completed and despite that he has intermittent sharp pain to the left lower abdomen he was seen yesterday for concerns of rectal bleeding that work-up was unremarkable through the ED. He has had no nausea or vomiting he is able to eat and drink, he has not followed up with the GI physicians and outpatient providers was referred to he points directly to his lower left abdomen as the focal area of pain when he gets the pain nothing triggers the pain his bowel and bladder habits have otherwise been unremarkable Past Medical History - Allergies and Home Meds Allergies/Adverse Reactions: Allergies olanzapine [From Zyprexa] Adverse Reaction (Verified 05/15/19 13:20) Vomiting Primary Care Physician: Patsy Dixon MD [Primary Care Provider] - Past Medical History: - Surgical History: - - Bilateral ear and possibly lymph node surgery, rotator cuff surgery. Smoking Status: Former smoker - Family History Maternal Family History: Reports: - - Patient notes a maternal family history of hypertension and heart disease. Paternal Family History: Reports: - - Patient notes a paternal family history of diabetes, hypertension and heart disease. Review of Systems ROS: - See above General: Denies: Chills, Fever, Sweats Eyes: Denies: Visual changes - bilaterally, Diplopia ENT: Denies: Rhinorrhea, Sore throat Cardiovascular: Denies: Chest pain, Palpitations Respiratory: Denies: Dyspnea, Cough, Dyspnea on exertion Gastrointestinal: Reports: Abdominal pain. Denies: Nausea, Vomiting, Diarrhea, Melena, Hematochezia Genitourinary: Denies: Dysuria, Hematuria, Frequency Musculoskeletal: Denies: Back pain, Extremity Pain Skin: Denies: Rash, Wounds Neurological: Denies: Headache, Weakness, Numbness Physical Exam Vital Signs/Narrative: Vital Signs Temp Pulse Resp BP Pulse Ox 05/15/19 13:25 97.9 F 72 15 149/99 H 97 05/15/19 13:21 86 15 149/99 H 98 05/15/19 13:18 97.9 F 76 14 149/99 H 98 General: Well nourished, Well developed, No Acute Distress Head: Normocephalic, Atraumatic Eyes: Perrl, EOMI ENT: Moist mucous membranes, No rhinorrhea Neck: Supple, Nontender Cardiovascular: Regular rate, Regular rhythm, No murmurs Respiratory: No distress, CTA bilaterally, Chest nontender Abdomen: Soft, Nontender, Nondistended, Normal bowel sounds, - - Abdomen is absolutely soft and nontender he points to the left lower abdomen is focal areas of pain his exam is unremarkable Back: Nontender, Normal Inspection Extremities: Nontender, No edema Skin: Normal color, No rash Neurological: Alert, Oriented x3, Cranial nerves II-XII grossly intact, Normal Strength, Normal Sensation Psychological: Normal affect, Normal Mood Diagnostic/Tx/Re-eval - Medical Decision Making Given his complaints of the above screening labs IV fluids pain management CT abdomen pelvis The patient's general screening labs are unremarkable see those reports, the CT scan shows minimal residual inflammatory changes no signs of acute diverticulitis abscess etc. given all the above and his complaints we will add lost his Cipro Flagyl for another 7 days and have him follow-up with his outpatient providers for the management and return for change in symptoms He understands agrees this plan Home stable Impression final Intermittent left-sided abdominal pain diverticulitis ED Disposition - Plan for ED Patient: Diagnosis: Acute diverticulitis Instructions: ABDOMINAL PAIN, Unknown Cause, (Female), Diverticulitis Prescriptions: Ciprofloxacin [Cipro] 500 mg PO BID #14 tab Prescription Printed metroNIDAZOLE [Flagyl] 500 mg PO Q6H #40 tab Prescription Printed Referrals: Patsy Dixon MD [Primary Care Provider] -
[2019-05-15 13:53] LABS: AST(SGOT) 16 U/L (15-37); Alanine Aminotransfer ALT/SGPT 28 U/L (16-61); Albumin, Serum 3.9 g/dL (3.2-5.0); Alkaline Phosphatase 96 U/L (45-117); Anion Gap 7 (5-15); BUN 15 mg/dL (7-18); BUN/Creat Ratio 11.5 RATIO (10-20); Bilirubin, Direct 0.12 mg/dL (0.00-0.30); Calcium,Total 9.9 mg/dL (8.5-10.1); Chloride 106 mmol/L (98-107); EST Glomerular Filtration Rate 65 mL/min (>60); Est Glom Filt Rate - Afr Amer 78 mL/min (>60); Estimated Creatinine Clearance 82.91 ml/min; Globulin 3.3 g/dL (2.2-4.2); Glucose 114 mg/dL (74-106); Lipase 198 U/L (73-393); Potassium 3.4 mmol/L (3.5-5.1); Protein, Total 7.2 g/dL (6.4-8.2); Sodium Level 140 mmol/L (136-145)
[2019-05-15] MEDS: 0.9% Normal Saline 1,000 ML 1000 ML IV (14:11)
[2019-05-15] MEDS: Ondansetron 4 MG/2 ML Vial IV (14:11)
[2019-05-15] MEDS: morphine 8 MG/ML Syringe IV (14:11)
[2019-05-15 15:18] LABS: Bacteria 0 SEEN /hpf (None Seen); Mucous, Urine 0 SEEN /hpf (<or=2+); Red Blood Cells-Urine 0 SEEN /hpf (0-5); White Blood Cells 0 SEEN /hpf (0-5)
[2019-05-15 15:23] LABS: Color, Urine Yellow (Yellow); Glucose, Dipstick Normal (Normal); Ketone-Dipstick Negative (Negative); Leukocyte Esterase-Dipstick Negative /ul (Negative); Nitrite-Dipstick Negative (Negative); Occult Blood-Urine Negative /ul (Negative); Protein-Dipstick Negative (Negative); Urine Bilirubin Dipstick Negative (Negative); Urine Clarity Sl. Cloudy (Clear); Urine Urobilinogen Normal (Normal)
[2019-05-15 16:10] LABS: Squamous Epithelial Cells - UA 0-5 SEEN /hpf (0-5)
[2019-05-15] MEDS: metroNIDAZOLE 500 MG Tablet PO (16:25)
[2019-05-15] MEDS: Ciprofloxacin 250 MG Tablet PO ×2 (16:28)
[2019-05-15 16:32] VITALS: BP 137/98; PULSE 79; RESP 18; O2SAT 97
== END 2019-05-15 16:33 | disposition home or self-care (01) ==
LOC: ED 14:11
PROVIDERS: Emergency Provider Emergency Medicine; Family Provider Internal Medicine; PCP Internal Medicine
DX: K57.92 Diverticulitis of intestine, part unspecified, without perforation or abscess without bleeding (principal); Z83.3 Family history of diabetes mellitus; Z87.891 Personal history of nicotine dependence
CPT/HCPCS: 74176; 80048; 80076; 81001; 83690; 85025; 96361; 96374; 96375; 99285; J7030; A4216; J2405